=== PATIENT | female | born 1995 | race Caucasian/White ===

== ENCOUNTER 2018-01-03 11:01 | Emergency (ER) | payer MEDICAID ==
[~2018-01-03] VITALS: Ht 565.3 cm; Wt 56.0 kg
[~2018-01-03 11:01] MED LIST: CYCL-1 PO; GUAI1TBM19 PO; IBUP-812 PO; MECL-111 PO; ONDA4TAB6 PO; ONDA8TAB9 PO; PENI500T2 PO
[2018-01-03 11:05] VITALS: BP 106/72
[2018-01-03 12:01] LABS: BASOPHILS % (AUTO) 0.2 % (0-1); EOSINOPHILS % (AUTO) 0 % (0-6); HEMATOCRIT 39.8 % (35.0-45.0); HEMOGLOBIN 13.8 g/dl (12.0-16.0); LYMPHOCYTES # (AUTO) 1.3 X10'3 (1.1-4.8); LYMPHOCYTES % (AUTO) 19.8 % (21-51); MEAN CORPUSCULAR HEMOGLOBIN 32.6 PG (27.0-31.0); MEAN CORPUSCULAR HGB CONC 34.7 % (33.0-36.5); MEAN CORPUSCULAR VOLUME 93.7 FL (78-98); MEAN PLATELET VOLUME 7.1 FL (7.4-10.4); MONOCYTES # (AUTO) 0.4 X10'3 (0-0.9); MONOCYTES % (AUTO) 5.8 % (2-12); NEUTROPHILS % (AUTO) 74.2 % (42-75); PLATELET COUNT 267 X10'3 (140-440); RED BLOOD COUNT 4.24 X10'6 (4.20-5.60); RED CELL DISTRIBUTION WIDTH 12.2 % (11.5-14.5); WHITE BLOOD COUNT 6.8 X10'3 (4.5-11.0)
[2018-01-03 12:14] LABS: ALANINE AMINOTRANSFERASE 26 U/L (12-78); ALBUMIN 4.2 G/DL (3.4-5.0); ALBUMIN/GLOBULIN RATIO 1.2 (1.1-1.5); ALKALINE PHOSPHATASE 66 IU/L (46-116); ANION GAP 7 (8-16); BILIRUBIN,TOTAL 2.4 MG/DL (0.1-1.0); BLOOD UREA NITROGEN 13 MG/DL (7-18); BUN/CREATININE RATIO 15.9 (6.6-38.0); CALCIUM 9.2 MG/DL (8.5-10.1); CHLORIDE 103 MMOL/L (99-107); CREATININE 0.82 MG/DL (0.40-0.90); GLUCOSE 93 MG/DL (70-104); POTASSIUM 3.9 MMOL/L (3.5-5.1); SODIUM 139 MMOL/L (135-145); TOTAL CARBON DIOXIDE 29.2 MMOL/L (24-32); TOTAL PROTEIN 7.7 G/DL (6.4-8.2); eGFR 87 ML/MIN
[2018-01-03] MEDS ORDERED: TETanus/Pertussis (Acell)/Diphther VAC/PF (Tdap-Adult) 0.5ml syringe IM ONE (12:15)
[2018-01-03] MEDS ORDERED: LIDOcaine 1.5% w/epinephrine 1:200,000 5ml ampul IJ ONE (12:15)
[2018-01-03 12:32] LABS: ASPARTATE AMINO TRANSFERASE 15 U/L (10-37); ETHANOL < 0.010 GM/DL (0.0-0.010)
[2018-01-03 13:43] LABS: URINE HCG NEGATIVE (NEG)
[2018-01-03 13:44] LABS: CLARITY,URINE CLEAR (Clear); COLOR,URINE YELLOW (Yellow); GLUCOSE, URINE NEGATIVE (Neg); KETONES,URINE 40 mg/dl (Neg); LEUKOCYTE ESTERASE ,URINE TRACE (Neg); NITRITES, URINE NEGATIVE (Neg); OCCULT BLOOD,URINE MODERATE (Neg); PROTEIN,URINE NEGATIVE (Neg); UROBILINOGEN,URINE 0.2 E.U/dL (0.2-1.0)
[2018-01-03 13:54] LABS: URINE AMPHETAMINE SCREEN NEGATIVE (Neg); URINE BARBITUATE SCREEN NEGATIVE (Neg); URINE BENZODIAZEPINES SCREEN NEGATIVE (Neg); URINE CANNABINOID SCREEN POSITIVE (Neg); URINE COCAINE SCREEN NEGATIVE (Neg); URINE METHADONE SCREEN NEGATIVE (Neg); URINE OPIATE SCREEN NEGATIVE (Neg); URINE PHENCYCLIDINE SCREEN NEGATIVE (Neg)
[2018-01-03 14:03] LABS: UA COLLECTION TYPE CLN CATCH MIDSTREAM
[2018-01-03 14:04] LABS: BACTERIA,URINE FEW /HPF (Neg); MUCUS STRANDS FEW /LPF (Neg); RBC,URINE 0-2 /HPF (0-2); SQUAMOUS EPITHELIAL CELL,UR FEW /LPF (FEW); WBC,URINE 0-4 /HPF (0-4)
== END 2018-01-03 18:55 | disposition home or self-care (01) ==
LOC: ER 11:01
DX: S41.112A Laceration without foreign body of left upper arm, initial encounter (principal); T14.91XA Suicide attempt, initial encounter; F41.9 Anxiety disorder, unspecified; F32.9 Major depressive disorder, single episode, unspecified; F12.90 Cannabis use, unspecified, uncomplicated; G89.29 Other chronic pain; J45.909 Unspecified asthma, uncomplicated; Z88.8 Allergy status to other drugs, medicaments and biological substances; Z79.899 Other long term (current) drug therapy; X78.8XXA Intentional self-harm by other sharp object, initial encounter; Y93.89 Activity, other specified; Y92.89 Other specified places as the place of occurrence of the external cause; Y99.8 Other external cause status
CPT/HCPCS: 12002; 36415; 80053; 80305; 80320; 81001; 81025; 84443; 85025; 87088; 90471; 90715; 99285; A6449

== ENCOUNTER 2018-05-10 17:09 | Emergency (ER) | payer MEDICAID ==
[~2018-05-10] VITALS: Ht 154.9 cm; Wt 54.0 kg
[2018-05-10 17:41] LABS: URINE HCG NEGATIVE (NEG)
[2018-05-10 17:44] LABS: BASOPHILS % (AUTO) 0.2 % (0-1); EOSINOPHILS % (AUTO) 0.5 % (0-6); HEMATOCRIT 39.1 % (35.0-45.0); HEMOGLOBIN 13.1 g/dl (12.0-16.0); LYMPHOCYTES # (AUTO) 2.3 X10'3 (1.1-4.8); LYMPHOCYTES % (AUTO) 25.1 % (21-51); MEAN CORPUSCULAR HEMOGLOBIN 31.8 PG (27.0-31.0); MEAN CORPUSCULAR HGB CONC 33.6 % (33.0-36.5); MEAN CORPUSCULAR VOLUME 94.6 FL (78-98); MEAN PLATELET VOLUME 7.1 FL (7.4-10.4); MONOCYTES # (AUTO) 0.5 X10'3 (0-0.9); MONOCYTES % (AUTO) 5.8 % (2-12); NEUTROPHILS # (AUTO) 6.2 X10'3 (1.8-7.7); NEUTROPHILS % (AUTO) 68.4 % (42-75); PLATELET COUNT 325 X10'3 (140-440); RED BLOOD COUNT 4.14 X10'6 (4.20-5.60); RED CELL DISTRIBUTION WIDTH 12.3 % (11.5-14.5)
[2018-05-10 18:00] LABS: URINE AMPHETAMINE SCREEN NEGATIVE (Neg); URINE BARBITUATE SCREEN NEGATIVE (Neg); URINE BENZODIAZEPINES SCREEN NEGATIVE (Neg); URINE CANNABINOID SCREEN POSITIVE (Neg); URINE COCAINE SCREEN NEGATIVE (Neg); URINE METHADONE SCREEN NEGATIVE (Neg); URINE OPIATE SCREEN NEGATIVE (Neg); URINE PHENCYCLIDINE SCREEN NEGATIVE (Neg)
[2018-05-10 18:04] LABS: ALANINE AMINOTRANSFERASE 21 U/L (12-78); ALBUMIN 4.1 G/DL (3.4-5.0); ALBUMIN/GLOBULIN RATIO 1.2 (1.1-1.5); ALKALINE PHOSPHATASE 65 IU/L (46-116); ANION GAP 8 (8-16); ASPARTATE AMINO TRANSFERASE 19 U/L (10-37); BILIRUBIN,TOTAL 1.7 MG/DL (0.1-1.0); BLOOD UREA NITROGEN 10 MG/DL (7-18); CALCIUM 8.9 MG/DL (8.5-10.1); CHLORIDE 104 MMOL/L (99-107); CREATININE 0.77 MG/DL (0.40-0.90); GLUCOSE 88 MG/DL (70-104); SODIUM 143 MMOL/L (135-145); TOTAL CARBON DIOXIDE 30.6 MMOL/L (24-32); TOTAL PROTEIN 7.6 G/DL (6.4-8.2); eGFR > 90 ML/MIN
[2018-05-10 18:05] LABS: ETHANOL < 0.010 GM/DL (0.0-0.010)
[2018-05-10 18:07] LABS: POTASSIUM 2.8 MMOL/L (3.5-5.1)
[2018-05-10] MEDS ORDERED: potassium Cl 20 mEq SR tablet PO STA (18:15)
[2018-05-11 01:09] VITALS: BP 117/82
== END 2018-05-11 01:11 | disposition home or self-care (01) ==
LOC: ER 17:10
DX: R45.851 Suicidal ideations (principal); F32.9 Major depressive disorder, single episode, unspecified; F41.9 Anxiety disorder, unspecified; J45.909 Unspecified asthma, uncomplicated; G89.29 Other chronic pain; Z79.899 Other long term (current) drug therapy; Z98.890 Other specified postprocedural states; Z88.8 Allergy status to other drugs, medicaments and biological substances; Z59.0 Homelessness
CPT/HCPCS: 36415; 80053; 80305; 80320; 81025; 85025; 99284

== ENCOUNTER 2018-08-09 10:48 | Emergency (ER) | payer MEDICAID ==
[~2018-08-09] VITALS: Ht 154.9 cm; Wt 45.0 kg
[2018-08-09 12:38] LABS: BASOPHILS % (AUTO) 0.3 % (0-1); EOSINOPHILS # (AUTO) 0.1 X10'3 (0-0.9); EOSINOPHILS % (AUTO) 0.9 % (0-6); HEMATOCRIT 37.6 % (35.0-45.0); HEMOGLOBIN 12.9 g/dl (12.0-16.0); LYMPHOCYTES # (AUTO) 1.3 X10'3 (1.1-4.8); LYMPHOCYTES % (AUTO) 16.9 % (21-51); MEAN CORPUSCULAR HEMOGLOBIN 32.6 PG (27.0-31.0); MEAN CORPUSCULAR HGB CONC 34.2 g/dL (33.0-36.5); MEAN CORPUSCULAR VOLUME 95.2 FL (78-98); MEAN PLATELET VOLUME 6.8 FL (7.4-10.4); MONOCYTES # (AUTO) 0.2 X10'3 (0-0.9); MONOCYTES % (AUTO) 2.9 % (2-12); NEUTROPHILS # (AUTO) 5.9 X10'3 (1.8-7.7); PLATELET COUNT 288 X10'3 (140-440); RED BLOOD COUNT 3.95 X10'6 (4.20-5.60); RED CELL DISTRIBUTION WIDTH 12.6 % (11.5-14.5); WHITE BLOOD COUNT 7.5 X10'3 (4.5-11.0)
[2018-08-09 12:48] LABS: ALANINE AMINOTRANSFERASE 21 U/L (12-78); ALBUMIN 4.2 G/DL (3.4-5.0); ALBUMIN/GLOBULIN RATIO 1.2 (1.1-1.5); ALKALINE PHOSPHATASE 62 IU/L (46-116); ANION GAP 15 (8-16); ASPARTATE AMINO TRANSFERASE 18 U/L (10-37); BILIRUBIN,TOTAL 2.1 MG/DL (0.1-1.0); BLOOD UREA NITROGEN 16 MG/DL (7-18); BUN/CREATININE RATIO 26.2 (6.6-38.0); CALCIUM 8.8 MG/DL (8.5-10.1); CHLORIDE 102 MMOL/L (99-107); CREATININE 0.61 MG/DL (0.40-0.90); ETHANOL < 0.010 GM/DL (0.0-0.010); GLUCOSE 66 MG/DL (70-104); POTASSIUM 3.6 MMOL/L (3.5-5.1); SODIUM 142 MMOL/L (135-145); TOTAL CARBON DIOXIDE 25.2 MMOL/L (24-32); TOTAL PROTEIN 7.8 G/DL (6.4-8.2); eGFR > 90 ML/MIN
[2018-08-09 13:07] LABS: URINE HCG NEGATIVE (NEG)
[2018-08-09 13:11] LABS: CLARITY,URINE SLIGHTLY CLOUDY (Clear); COLOR,URINE YELLOW (Yellow); GLUCOSE, URINE NEGATIVE (Neg); KETONES,URINE >=80 mg/dl (Neg); LEUKOCYTE ESTERASE ,URINE NEGATIVE (Neg); NITRITES, URINE NEGATIVE (Neg); OCCULT BLOOD,URINE LARGE (Neg); PROTEIN,URINE NEGATIVE (Neg); UA COLLECTION TYPE NON-SPECIFIED; UROBILINOGEN,URINE 0.2 E.U/dL (0.2-1.0)
[2018-08-09 13:22] LABS: URINE AMPHETAMINE SCREEN NEGATIVE (Neg); URINE BARBITUATE SCREEN NEGATIVE (Neg); URINE BENZODIAZEPINES SCREEN NEGATIVE (Neg); URINE CANNABINOID SCREEN POSITIVE (Neg); URINE COCAINE SCREEN NEGATIVE (Neg); URINE METHADONE SCREEN NEGATIVE (Neg); URINE OPIATE SCREEN NEGATIVE (Neg); URINE PHENCYCLIDINE SCREEN NEGATIVE (Neg)
[2018-08-09 13:30] LABS: MUCUS STRANDS MANY /LPF (Neg); SQUAMOUS EPITHELIAL CELL,UR MODERATE /LPF (FEW)
[2018-08-09 13:32] LABS: RBC,URINE TNTC /HPF (0-2)
[2018-08-09 13:34] LABS: BACTERIA,URINE NONE SEEN /HPF (Neg); WBC,URINE 0-4 /HPF (0-4)
--- NOTE | 2018-08-09 15:09 | NUR ---
1454: TELE-PSYCH INITIATED
--- NOTE | 2018-08-09 15:20 | NUR ---
REPORTED GIVEN TO ED SOC .
[2018-08-09] MEDS ORDERED: QUET25TA PO (16:20)
[2018-08-09 16:40] VITALS: BP 110/64
== END 2018-08-09 16:51 | disposition home or self-care (01) ==
LOC: ER 10:48 → EEVIPCON 10:48 → ER 16:51
DX: F32.9 Major depressive disorder, single episode, unspecified (principal); J45.909 Unspecified asthma, uncomplicated; G89.29 Other chronic pain; F41.9 Anxiety disorder, unspecified; Z88.8 Allergy status to other drugs, medicaments and biological substances; Z79.899 Other long term (current) drug therapy
CPT/HCPCS: 36415; 80053; 80305; 80320; 81001; 81025; 85025; 99283; 99284

== ENCOUNTER 2018-08-21 10:10 | Emergency (ER) | payer MEDICAID ==
[~2018-08-21] VITALS: Ht 154.9 cm; Wt 48.5 kg
[~2018-08-21 10:10] MED LIST changes: +QUET25TA PO
[2018-08-21] MEDS ORDERED: normal saline 1000ml 1,000 ML IV ONE (11:25)
[2018-08-21 11:43] LABS: CLARITY,URINE CLOUDY (Clear); COLOR,URINE YELLOW (Yellow); GLUCOSE, URINE NEGATIVE (Neg); KETONES,URINE NEGATIVE (Neg); LEUKOCYTE ESTERASE ,URINE NEGATIVE (Neg); NITRITES, URINE NEGATIVE (Neg); OCCULT BLOOD,URINE MODERATE (Neg); PH,URINE 5.5 (4.8-8.0); PROTEIN,URINE NEGATIVE (Neg); UROBILINOGEN,URINE 0.2 E.U/dL (0.2-1.0)
[2018-08-21 11:45] LABS: UA COLLECTION TYPE CLN CATCH MIDSTREAM
[2018-08-21 11:49] LABS: MUCUS STRANDS MANY /LPF (Neg); SQUAMOUS EPITHELIAL CELL,UR MANY /LPF (FEW)
[2018-08-21 11:50] LABS: BACTERIA,URINE 2+ /HPF (Neg); RBC,URINE 0-2 /HPF (0-2); WBC,URINE 0-4 /HPF (0-4)
[2018-08-21 12:02] LABS: BASOPHILS % (AUTO) 0.1 % (0-1); EOSINOPHILS % (AUTO) 0.1 % (0-6); HEMATOCRIT 38.6 % (35.0-45.0); HEMOGLOBIN 13.1 g/dl (12.0-16.0); LYMPHOCYTES # (AUTO) 1.3 X10'3 (1.1-4.8); LYMPHOCYTES % (AUTO) 16.5 % (21-51); MEAN CORPUSCULAR HEMOGLOBIN 31.9 PG (27.0-31.0); MEAN CORPUSCULAR HGB CONC 34.1 g/dL (33.0-36.5); MEAN CORPUSCULAR VOLUME 93.7 FL (78-98); MEAN PLATELET VOLUME 7.4 FL (7.4-10.4); MONOCYTES # (AUTO) 0.4 X10'3 (0-0.9); MONOCYTES % (AUTO) 5.4 % (2-12); NEUTROPHILS # (AUTO) 5.9 X10'3 (1.8-7.7); NEUTROPHILS % (AUTO) 77.9 % (42-75); PLATELET COUNT 205 X10'3 (140-440); RED BLOOD COUNT 4.11 X10'6 (4.20-5.60); RED CELL DISTRIBUTION WIDTH 12.2 % (11.5-14.5); WHITE BLOOD COUNT 7.6 X10'3 (4.5-11.0)
[2018-08-21 12:20] LABS: ALANINE AMINOTRANSFERASE 19 U/L (12-78); ALBUMIN 4.3 G/DL (3.4-5.0); ALBUMIN/GLOBULIN RATIO 1.2 (1.1-1.5); ALKALINE PHOSPHATASE 64 IU/L (46-116); ANION GAP 11 (8-16); ASPARTATE AMINO TRANSFERASE 15 U/L (10-37); BILIRUBIN,TOTAL 1.2 MG/DL (0.1-1.0); BLOOD UREA NITROGEN 11 MG/DL (7-18); BUN/CREATININE RATIO 16.4 (6.6-38.0); CALCIUM 8.8 MG/DL (8.5-10.1); CHLORIDE 104 MMOL/L (99-107); CREATININE 0.67 MG/DL (0.40-0.90); GLUCOSE 116 MG/DL (70-104); SODIUM 141 MMOL/L (135-145); TOTAL CARBON DIOXIDE 26.1 MMOL/L (24-32); TOTAL PROTEIN 7.8 G/DL (6.4-8.2); eGFR > 90 ML/MIN
[2018-08-21 12:22] LABS: POTASSIUM 2.8 MMOL/L (3.5-5.1)
[2018-08-21] MEDS ORDERED: potassium Cl 20 mEq SR tablet PO STA (12:31)
[2018-08-21 12:35] LABS: URINE HCG NEGATIVE (NEG)
[2018-08-21] MEDS ORDERED: ondansetron 4mg rapidly disintigrating tab PO ONE (12:35)
--- NOTE | 2018-08-21 13:00 | NUR ---
PATIENT UP TO BATHROOM, AMBULATED WNL. PATIENT PROVIDED BAGGED LUNCH AND ORANGE JUICE. PATIENT AND HER BOYFRIEND LIVE IN THEIR CAR
[2018-08-21] MEDS ORDERED: POTA10CA44 PO (13:30)
[2018-08-21] MEDS ORDERED: ONDA4TAB6 PO (13:35)
[2018-08-21] MEDS ORDERED: FAMO-128 PO (13:35)
[2018-08-21 13:50] VITALS: BP 106/65
== END 2018-08-21 13:52 | disposition home or self-care (01) ==
LOC: ER 10:10
DX: R63.0 Anorexia (principal); R42 Dizziness and giddiness; J45.909 Unspecified asthma, uncomplicated; G89.29 Other chronic pain; Z88.8 Allergy status to other drugs, medicaments and biological substances; Z79.899 Other long term (current) drug therapy
CPT/HCPCS: 36415; 80053; 81001; 81025; 85025; 96360; 99283; J7030

== ENCOUNTER 2019-01-15 12:17 | Emergency (ER) | payer MEDICAID ==
[~2019-01-15] VITALS: Ht 154.9 cm; Wt 45.5 kg
[~2019-01-15 12:17] MED LIST changes: +FAMO-128 PO; +IBUP-1985 PO; -QUET25TA PO
[2019-01-15 12:27] VITALS: BP 103/70
[2019-01-15] MEDS ORDERED: HYDROcodone/acetaminophen 5mg/325mg tablet PO STA (12:34)
== END 2019-01-15 13:55 | disposition home or self-care (01) ==
LOC: ER 12:17
DX: S40.021A Contusion of right upper arm, initial encounter (principal); M79.631 Pain in right forearm; J45.909 Unspecified asthma, uncomplicated; G89.29 Other chronic pain; F41.9 Anxiety disorder, unspecified; F32.9 Major depressive disorder, single episode, unspecified; Z98.890 Other specified postprocedural states; Z79.899 Other long term (current) drug therapy; W18.39XA Other fall on same level, initial encounter; Y93.89 Activity, other specified; Y92.89 Other specified places as the place of occurrence of the external cause; Y99.8 Other external cause status
CPT/HCPCS: 29125; 73080; 73090; 99284

== ENCOUNTER 2019-04-13 08:48 | Emergency (ER) | payer MEDICAID ==
[~2019-04-13] VITALS: Ht 154.9 cm; Wt 55.0 kg
[2019-04-13 08:59] VITALS: BP 95/73
[2019-04-13] MEDS ORDERED: ipratropium/albuterol 3ml nebule NEB ONE (09:30)
[2019-04-13] MEDS ORDERED: METH4TAB81 PO (09:32)
[2019-04-13] MEDS ORDERED: AZIT250T83 PO (09:32)
[2019-04-13] MEDS ORDERED: ALBU8.5H8 IH (09:32)
--- NOTE | 2019-04-13 09:44 | NUR ---
RT AT BEDSIDE
== END 2019-04-13 09:58 | disposition home or self-care (01) ==
LOC: ER 08:49
DX: J20.9 Acute bronchitis, unspecified (principal); J45.909 Unspecified asthma, uncomplicated; G89.29 Other chronic pain; F41.9 Anxiety disorder, unspecified; F32.9 Major depressive disorder, single episode, unspecified; F12.90 Cannabis use, unspecified, uncomplicated; F17.200 Nicotine dependence, unspecified, uncomplicated; Z98.890 Other specified postprocedural states; Z88.8 Allergy status to other drugs, medicaments and biological substances; Z79.2 Long term (current) use of antibiotics; Z79.899 Other long term (current) drug therapy
CPT/HCPCS: 94640; 94760; 99283

== ENCOUNTER 2019-06-30 15:27 | Emergency (ER) | payer MEDICAID ==
[~2019-06-30] VITALS: Ht 154.9 cm; Wt 45.0 kg
[~2019-06-30 15:27] MED LIST changes: +ALBU8.5H8 IH; +METH4TAB81 PO
[2019-06-30] MEDS ORDERED: metoclopramide 5 mg/ml inj IV ONE (16:20)
[2019-06-30] MEDS ORDERED: normal saline 1000ML IV soln IVB ONE ×2 (16:20)
[2019-06-30] MEDS ORDERED: diphenhydrAMINE 50 mg/ml inj IV ONE (16:20)
[2019-06-30] MEDS ORDERED: glycopyrrolate 0.2mg/ml inj IV ONE (16:20)
[2019-06-30 17:06] LABS: HEMATOCRIT 36.9 % (35.0-45.0); MEAN PLATELET VOLUME 7.8 FL (7.4-10.4)
[2019-06-30 17:08] LABS: BASOPHILS % (AUTO) 0.2 % (0-1); EOSINOPHILS % (AUTO) 0.2 % (0-6); HEMOGLOBIN 12.6 g/dl (12.0-16.0); LYMPHOCYTES # (AUTO) 1.7 X10'3 (1.1-4.8); LYMPHOCYTES % (AUTO) 25.4 % (21-51); MEAN CORPUSCULAR HEMOGLOBIN 33.2 PG (27.0-31.0); MEAN CORPUSCULAR HGB CONC 34.2 g/dL (33.0-36.5); MEAN CORPUSCULAR VOLUME 97.1 FL (78-98); MONOCYTES # (AUTO) 0.5 X10'3 (0-0.9); MONOCYTES % (AUTO) 7.3 % (2-12); NEUTROPHILS # (AUTO) 4.5 X10'3 (1.8-7.7); NEUTROPHILS % (AUTO) 66.9 % (42-75); PLATELET COUNT 233 X10'3 (140-440); WHITE BLOOD COUNT 6.7 X10'3 (4.5-11.0)
[2019-06-30 17:21] LABS: ALANINE AMINOTRANSFERASE 19 U/L (12-78); ALBUMIN 4.1 G/DL (3.4-5.0); ALBUMIN/GLOBULIN RATIO 1.2 (1.1-1.5); ALKALINE PHOSPHATASE 47 IU/L (46-116); ANION GAP 8 (8-16); ASPARTATE AMINO TRANSFERASE 15 U/L (10-37); BILIRUBIN,TOTAL 0.8 MG/DL (0.1-1.0); BLOOD UREA NITROGEN 13 MG/DL (7-18); BUN/CREATININE RATIO 21.7 (6.6-38.0); CALCIUM 8.6 MG/DL (8.5-10.1); CHLORIDE 107 MMOL/L (99-107); GLUCOSE 95 MG/DL (70-104); LIPASE 72 U/L (73-393); POTASSIUM 3.8 MMOL/L (3.5-5.1); SODIUM 144 MMOL/L (135-145); TOTAL CARBON DIOXIDE 29.5 MMOL/L (24-32); TOTAL PROTEIN 7.4 G/DL (6.4-8.2); eGFR > 90 ML/MIN
[2019-06-30 17:55] VITALS: BP 99/69
[2019-06-30] MEDS ORDERED: ketorolac trometh. 30mg/ml inj. IV ONE (18:15)
[2019-06-30 18:33] LABS: CLARITY,URINE CLOUDY (Clear); COLOR,URINE YELLOW (Yellow); GLUCOSE, URINE NEGATIVE (Neg); KETONES,URINE NEGATIVE (Neg); LEUKOCYTE ESTERASE ,URINE NEGATIVE (Neg); NITRITES, URINE NEGATIVE (Neg); OCCULT BLOOD,URINE TRACE-INTACT (Neg); PROTEIN,URINE NEGATIVE (Neg); UROBILINOGEN,URINE 0.2 E.U/dL (0.2-1.0)
[2019-06-30 18:34] LABS: URINE HCG NEGATIVE (NEG)
[2019-06-30 18:36] LABS: UA COLLECTION TYPE CLN CATCH MIDSTREAM
[2019-06-30] MEDS ORDERED: ONDA4TAB12 PO (18:38)
[2019-06-30 18:57] LABS: AMORPHOUS PHOSPHATES 3+; MUCUS STRANDS FEW /LPF (Neg); SQUAMOUS EPITHELIAL CELL,UR MANY /LPF (FEW)
[2019-06-30 18:58] LABS: BACTERIA,URINE 2+ /HPF (Neg); RBC,URINE 0-2 /HPF (0-2); WBC,URINE 0-4 /HPF (0-4)
== END 2019-06-30 19:02 | disposition home or self-care (01) ==
LOC: ER 15:28
DX: R10.13 Epigastric pain (principal); R11.2 Nausea with vomiting, unspecified; J45.909 Unspecified asthma, uncomplicated; G89.29 Other chronic pain; F12.90 Cannabis use, unspecified, uncomplicated; F17.200 Nicotine dependence, unspecified, uncomplicated; Z98.890 Other specified postprocedural states; Z88.8 Allergy status to other drugs, medicaments and biological substances; Z79.899 Other long term (current) drug therapy
CPT/HCPCS: 36415; 80053; 81001; 81025; 83690; 85025; 96361; 96374; 96375; 99283; J1200; J1885; J2765; J7030; J3490

== ENCOUNTER 2019-12-20 19:53 | Emergency (ER) | payer MEDICAID ==
[~2019-12-20] VITALS: Ht 154.9 cm; Wt 50.0 kg
[~2019-12-20 19:53] MED LIST changes: -MECL-111 PO; +MECL-159 PO; +ONDA4TAB12 PO
[2019-12-20 19:55] VITALS: BP 108/82
--- NOTE | 2019-12-20 20:10 | NUR ---
Pt states she recently quit drinking energy drinks. Previously she states she drank 3 or 4 energy drinks a day.
[2019-12-20] MEDS ORDERED: famotidine 20mg tablet PO ONE (20:15)
[2019-12-20] MEDS ORDERED: ondansetron 4mg rapidly disintigrating tab PO ONE (20:15)
[2019-12-20 20:39] LABS: URINE HCG NEGATIVE (NEG)
[2019-12-20 20:40] LABS: CLARITY,URINE CLOUDY (Clear); COLOR,URINE YELLOW (Yellow); GLUCOSE, URINE NEGATIVE (Neg); KETONES,URINE NEGATIVE (Neg); LEUKOCYTE ESTERASE ,URINE NEGATIVE (Neg); NITRITES, URINE NEGATIVE (Neg); OCCULT BLOOD,URINE SMALL (Neg); PH,URINE 7.5 (4.8-8.0); PROTEIN,URINE NEGATIVE (Neg); UROBILINOGEN,URINE 0.2 E.U/dL (0.2-1.0)
[2019-12-20 20:40] LABS: BASOPHILS % (AUTO) 0.3 % (0-1); EOSINOPHILS % (AUTO) 0.4 % (0-6); HEMATOCRIT 35.2 % (35.0-45.0); LYMPHOCYTES # (AUTO) 3.1 X10'3 (1.1-4.8); LYMPHOCYTES % (AUTO) 41.2 % (21-51); MEAN CORPUSCULAR HEMOGLOBIN 31.5 PG (27.0-31.0); MEAN CORPUSCULAR HGB CONC 34.1 g/dL (33.0-36.5); MEAN CORPUSCULAR VOLUME 92.4 FL (78-98); MEAN PLATELET VOLUME 6.8 FL (7.4-10.4); MONOCYTES # (AUTO) 0.7 X10'3 (0-0.9); MONOCYTES % (AUTO) 9.8 % (2-12); NEUTROPHILS # (AUTO) 3.6 X10'3 (1.8-7.7); NEUTROPHILS % (AUTO) 48.3 % (42-75); PLATELET COUNT 251 X10'3 (140-440); RED BLOOD COUNT 3.82 X10'6 (4.20-5.60); RED CELL DISTRIBUTION WIDTH 12.1 % (11.5-14.5); WHITE BLOOD COUNT 7.4 X10'3 (4.5-11.0)
[2019-12-20 20:52] LABS: ALANINE AMINOTRANSFERASE 19 U/L (12-78); ALBUMIN 4.1 G/DL (3.4-5.0); ALBUMIN/GLOBULIN RATIO 1.2 (1.1-1.5); ALKALINE PHOSPHATASE 50 IU/L (46-116); ANION GAP 10 (8-16); ASPARTATE AMINO TRANSFERASE 15 U/L (10-37); BILIRUBIN,TOTAL 1.1 MG/DL (0.1-1.0); BLOOD UREA NITROGEN 10 MG/DL (7-18); BUN/CREATININE RATIO 11.2 (6.6-38.0); CALCIUM 9.4 MG/DL (8.5-10.1); CHLORIDE 107 MMOL/L (99-107); CREATININE 0.89 MG/DL (0.40-0.90); GLUCOSE 87 MG/DL (70-104); LIPASE 83 U/L (73-393); POTASSIUM 3.8 MMOL/L (3.5-5.1); SODIUM 145 MMOL/L (135-145); TOTAL CARBON DIOXIDE 28.1 MMOL/L (24-32); TOTAL PROTEIN 7.6 G/DL (6.4-8.2); eGFR 78 ML/MIN
[2019-12-20 20:54] LABS: UA COLLECTION TYPE CLN CATCH MIDSTREAM
[2019-12-20 20:55] LABS: BACTERIA,URINE NONE SEEN /HPF (Neg); SQUAMOUS EPITHELIAL CELL,UR MANY /LPF (FEW); WBC,URINE NONE SEEN /HPF (0-4)
[2019-12-20 20:56] LABS: AMORPHOUS PHOSPHATES 3+; MUCUS STRANDS FEW /LPF (Neg)
[2019-12-20] MEDS ORDERED: ONDA4TAB6 PO (20:57)
== END 2019-12-20 21:13 | disposition home or self-care (01) ==
LOC: ER 19:54
DX: R11.2 Nausea with vomiting, unspecified (principal); R53.1 Weakness; J45.909 Unspecified asthma, uncomplicated; G89.29 Other chronic pain; F41.9 Anxiety disorder, unspecified; F32.9 Major depressive disorder, single episode, unspecified; F12.90 Cannabis use, unspecified, uncomplicated; Z98.890 Other specified postprocedural states; Z88.8 Allergy status to other drugs, medicaments and biological substances; Z79.899 Other long term (current) drug therapy
CPT/HCPCS: 36415; 80053; 81001; 81025; 83690; 85025; 99283

== ENCOUNTER 2020-03-23 22:54 | Emergency (ER) | payer MEDICAID ==
[~2020-03-23] VITALS: Ht 154.9 cm; Wt 50.0 kg
[2020-03-23 23:00] VITALS: BP 116/82
[2020-03-24] MEDS ORDERED: HYDR-3686 PO (00:39)
[2020-03-24] MEDS ORDERED: LURA40TA3 PO (00:39)
[2020-03-24] MEDS ORDERED: lurasidone 60mg tablet PO ONE (00:45)
[2020-03-24] MEDS ORDERED: lurasidone 60mg tablet PO SCH (00:45)
[2020-03-24] MEDS ORDERED: hydrOXYzine 25 MG tablet PO ONE (00:45)
== END 2020-03-24 05:51 | disposition home or self-care (01) ==
LOC: ER 22:54
DX: R45.851 Suicidal ideations (principal); J45.909 Unspecified asthma, uncomplicated; G89.29 Other chronic pain; F41.9 Anxiety disorder, unspecified; F32.9 Major depressive disorder, single episode, unspecified; F12.90 Cannabis use, unspecified, uncomplicated; Z91.19 Patient's noncompliance with other medical treatment and regimen; Z98.890 Other specified postprocedural states; Z86.2 Personal history of diseases of the blood and blood-forming organs and certain disorders involving the immune mechanism; Z72.89 Other problems related to lifestyle; Z88.8 Allergy status to other drugs, medicaments and biological substances; Z79.2 Long term (current) use of antibiotics; Z79.899 Other long term (current) drug therapy
CPT/HCPCS: 99283; Q0177

== ENCOUNTER 2020-07-28 00:18 | Emergency (ER) | payer MEDICAID ==
[~2020-07-28] VITALS: Ht 154.9 cm; Wt 55.0 kg
[~2020-07-28 00:18] MED LIST changes: +LURA40TA3 PO
[2020-07-28 00:29] VITALS: BP 109/80
== END 2020-07-28 01:03 | disposition home or self-care (01) ==
LOC: ER 00:19
DX: S63.501A Unspecified sprain of right wrist, initial encounter (principal); J45.909 Unspecified asthma, uncomplicated; G89.29 Other chronic pain; F41.9 Anxiety disorder, unspecified; F32.9 Major depressive disorder, single episode, unspecified; F12.90 Cannabis use, unspecified, uncomplicated; Z86.2 Personal history of diseases of the blood and blood-forming organs and certain disorders involving the immune mechanism; Z98.890 Other specified postprocedural states; Z72.89 Other problems related to lifestyle; Z88.8 Allergy status to other drugs, medicaments and biological substances; Z79.2 Long term (current) use of antibiotics; Z79.899 Other long term (current) drug therapy; X58.XXXA Exposure to other specified factors, initial encounter; Y93.89 Activity, other specified; Y92.89 Other specified places as the place of occurrence of the external cause; Y99.8 Other external cause status
CPT/HCPCS: 29125; 73110; 99283

== ENCOUNTER 2020-08-15 21:38 | Emergency (ER) | payer MEDICAID ==
[~2020-08-15] VITALS: Ht 154.9 cm; Wt 55.0 kg
[2020-08-15] MEDS ORDERED: IBUP-1984 PO (22:41)
[2020-08-15] MEDS ORDERED: ibuprofen tablet 400 MG TABLET PO ONE (22:45)
[2020-08-15 22:51] VITALS: BP 110/81
== END 2020-08-15 22:52 | disposition home or self-care (01) ==
LOC: ER 21:38
DX: R07.89 Other chest pain (principal); J45.909 Unspecified asthma, uncomplicated; G89.29 Other chronic pain; F41.9 Anxiety disorder, unspecified; F32.9 Major depressive disorder, single episode, unspecified; F17.200 Nicotine dependence, unspecified, uncomplicated; F12.90 Cannabis use, unspecified, uncomplicated; Z86.2 Personal history of diseases of the blood and blood-forming organs and certain disorders involving the immune mechanism; Z98.890 Other specified postprocedural states; Z72.89 Other problems related to lifestyle; Z88.8 Allergy status to other drugs, medicaments and biological substances; Z79.2 Long term (current) use of antibiotics; Z79.899 Other long term (current) drug therapy
CPT/HCPCS: 71045; 93005; 99283

== ENCOUNTER 2020-12-24 19:49 | Emergency (ER) | payer MEDICAID ==
[~2020-12-24] VITALS: Ht 154.9 cm; Wt 54.1 kg
[2020-12-24 20:45] VITALS: BP 111/72
--- NOTE | 2020-12-24 21:51 | NUR ---
pt is resting quietly on gurney, waiting to be evaluated by provider, friend at bedside
[2020-12-24] MEDS ORDERED: ketorolac trometh. 30mg/ml inj. IM ONE (22:05)
== END 2020-12-24 22:54 | disposition home or self-care (01) ==
LOC: ER 19:50
DX: M79.641 Pain in right hand (principal); J45.909 Unspecified asthma, uncomplicated; G89.29 Other chronic pain; F41.9 Anxiety disorder, unspecified; F32.9 Major depressive disorder, single episode, unspecified; F12.90 Cannabis use, unspecified, uncomplicated; Z86.2 Personal history of diseases of the blood and blood-forming organs and certain disorders involving the immune mechanism; Z98.890 Other specified postprocedural states; Z85.9 Personal history of malignant neoplasm, unspecified; Z72.89 Other problems related to lifestyle; Z88.8 Allergy status to other drugs, medicaments and biological substances; Z79.2 Long term (current) use of antibiotics; Z79.899 Other long term (current) drug therapy
CPT/HCPCS: 73130; 99283

== ENCOUNTER 2021-01-29 09:38 | Emergency (ER) | payer MEDICAID ==
[~2021-01-29] VITALS: Ht 154.9 cm; Wt 55.5 kg
[~2021-01-29 09:38] MED LIST changes: +ALBU8.5H17 IH; -ALBU8.5H8 IH
[2021-01-29 10:14] VITALS: BP 93/58
== END 2021-01-29 13:46 | disposition left against medical advice (07) ==
LOC: ER 09:39
DX: M79.605 Pain in left leg (principal); Z53.21 Procedure and treatment not carried out due to patient leaving prior to being seen by health care provider

== ENCOUNTER 2021-03-26 02:45 | Emergency (ER) | payer MEDICAID ==
[~2021-03-26] VITALS: Ht 154.9 cm; Wt 54.5 kg
[2021-03-26 05:01] LABS: URINE HCG NEGATIVE (NEG)
[2021-03-26 05:20] LABS: ALANINE AMINOTRANSFERASE 19 U/L (12-78); ALBUMIN 3.6 G/DL (3.4-5.0); ALBUMIN/GLOBULIN RATIO 1.1 (1.1-1.5); ALKALINE PHOSPHATASE 71 IU/L (46-116); ANION GAP 13 (8-16); ASPARTATE AMINO TRANSFERASE 14 U/L (10-37); BILIRUBIN,TOTAL 0.8 MG/DL (0.1-1.0); BLOOD UREA NITROGEN 12 MG/DL (7-18); BUN/CREATININE RATIO 19.7 (6.6-38.0); CALCIUM 8.5 MG/DL (8.5-10.1); CHLORIDE 107 MMOL/L (99-107); CREATININE 0.61 MG/DL (0.40-0.90); GLUCOSE 99 MG/DL (70-104); LIPASE 61 U/L (73-393); POTASSIUM 3.6 MMOL/L (3.5-5.1); SODIUM 144 MMOL/L (135-145); TOTAL CARBON DIOXIDE 24.4 MMOL/L (24-32); TOTAL PROTEIN 6.9 G/DL (6.4-8.2); eGFR > 90 ML/MIN
[2021-03-26 05:30] LABS: BASOPHILS % (AUTO) 0.2 % (0-1); EOSINOPHILS % (AUTO) 0.3 % (0-6); HEMATOCRIT 34.3 % (35.0-45.0); HEMOGLOBIN 11.7 g/dl (12.0-16.0); LYMPHOCYTES # (AUTO) 2.2 X10'3 (1.1-4.8); LYMPHOCYTES % (AUTO) 25.2 % (21-51); MEAN CORPUSCULAR HEMOGLOBIN 32.8 PG (27.0-31.0); MEAN CORPUSCULAR HGB CONC 34.1 g/dL (33.0-36.5); MEAN CORPUSCULAR VOLUME 96.2 FL (78-98); MEAN PLATELET VOLUME 7.4 FL (7.4-10.4); MONOCYTES # (AUTO) 0.7 X10'3 (0-0.9); MONOCYTES % (AUTO) 8.3 % (2-12); NEUTROPHILS # (AUTO) 5.7 X10'3 (1.8-7.7); PLATELET COUNT 330 X10'3 (140-440); RED BLOOD COUNT 3.56 X10'6 (4.20-5.60); RED CELL DISTRIBUTION WIDTH 12.7 % (11.5-14.5); WHITE BLOOD COUNT 8.7 X10'3 (4.5-11.0)
[2021-03-26 05:46] LABS: CLARITY,URINE CLOUDY (Clear); COLOR,URINE PINK (Yellow); GLUCOSE, URINE NEGATIVE (Neg); KETONES,URINE NEGATIVE (Neg); PH,URINE 7.5 (4.8-8.0); PROTEIN,URINE TRACE mg/dl (Neg); UA COLLECTION TYPE CLN CATCH MIDSTREAM
[2021-03-26 05:47] LABS: LEUKOCYTE ESTERASE ,URINE TRACE (Neg); NITRITES, URINE NEGATIVE (Neg); OCCULT BLOOD,URINE LARGE (Neg); UROBILINOGEN,URINE 0.2 E.U/dL (0.2-1.0)
--- NOTE | 2021-03-26 05:48 | NUR ---
Pt IS A&O X 4, GAIT IS STEADY. NO BLEEDING OR CRAMPING AT THIS TIME. PT IS SITTING IN BED TALKING ON PHONE WITH NO PAIN NOTED OR PAIN MEDICATION REQUESTED.
[2021-03-26 05:50] LABS: BACTERIA,URINE FEW /HPF (Neg); RBC,URINE 20-50 /HPF (0-2); SQUAMOUS EPITHELIAL CELL,UR FEW /LPF (FEW); WBC,URINE 0-4 /HPF (0-4)
[2021-03-26 05:51] LABS: AMORPHOUS PHOSPHATES 3+; MUCUS STRANDS MODERATE /LPF (Neg)
[2021-03-26 05:53] LABS: MAGNESIUM 2.1 MG/DL (1.5-2.4)
[2021-03-26 06:27] VITALS: BP 91/53
== END 2021-03-26 06:29 | disposition home or self-care (01) ==
LOC: ER 02:46
DX: R10.32 Left lower quadrant pain (principal); R10.31 Right lower quadrant pain; J45.909 Unspecified asthma, uncomplicated; G89.29 Other chronic pain; F12.90 Cannabis use, unspecified, uncomplicated; Z72.89 Other problems related to lifestyle; Z85.9 Personal history of malignant neoplasm, unspecified; Z86.2 Personal history of diseases of the blood and blood-forming organs and certain disorders involving the immune mechanism; Z88.8 Allergy status to other drugs, medicaments and biological substances; Z79.899 Other long term (current) drug therapy
CPT/HCPCS: 36415; 80053; 81001; 81025; 83690; 83735; 85025; 87088; 99283

== ENCOUNTER 2021-06-19 11:03 | Emergency (ER) | payer MEDICAID ==
[~2021-06-19] VITALS: Ht 154.9 cm; Wt 54.5 kg
[2021-06-19 11:14] VITALS: BP 104/71
[2021-06-19 11:28] LABS: BASOPHILS % (AUTO) 0.1 % (0-1); EOSINOPHILS % (AUTO) 0.3 % (0-6); HEMATOCRIT 37.4 % (35.0-45.0); HEMOGLOBIN 12.8 g/dl (12.0-16.0); LYMPHOCYTES # (AUTO) 1.7 X10'3 (1.1-4.8); LYMPHOCYTES % (AUTO) 33.4 % (21-51); MEAN CORPUSCULAR HEMOGLOBIN 32.2 PG (27.0-31.0); MEAN CORPUSCULAR HGB CONC 34.2 g/dL (33.0-36.5); MEAN CORPUSCULAR VOLUME 94.4 FL (78-98); MEAN PLATELET VOLUME 6.9 FL (7.4-10.4); MONOCYTES # (AUTO) 0.3 X10'3 (0-0.9); MONOCYTES % (AUTO) 6.1 % (2-12); NEUTROPHILS # (AUTO) 3.1 X10'3 (1.8-7.7); NEUTROPHILS % (AUTO) 60.1 % (42-75); PLATELET COUNT 283 X10'3 (140-440); RED BLOOD COUNT 3.96 X10'6 (4.20-5.60); RED CELL DISTRIBUTION WIDTH 12.3 % (11.5-14.5); WHITE BLOOD COUNT 5.2 X10'3 (4.5-11.0)
[2021-06-19 11:41] LABS: PARTIAL THROMBOPLASTIN TIME 26 SECONDS (22-32)
[2021-06-19 11:42] LABS: ALANINE AMINOTRANSFERASE 25 U/L (12-78); ALBUMIN 3.8 G/DL (3.4-5.0); ALKALINE PHOSPHATASE 68 IU/L (46-116); ANION GAP 9 (8-16); ASPARTATE AMINO TRANSFERASE 19 U/L (10-37); BILIRUBIN,TOTAL 0.8 MG/DL (0.1-1.0); BLOOD UREA NITROGEN 11 MG/DL (7-18); BUN/CREATININE RATIO 15.5 (6.6-38.0); CALCIUM 8.7 MG/DL (8.5-10.1); CHLORIDE 108 MMOL/L (99-107); CREATININE 0.71 MG/DL (0.40-0.90); GLUCOSE 104 MG/DL (70-104); POTASSIUM 3.9 MMOL/L (3.5-5.1); SODIUM 144 MMOL/L (135-145); TOTAL CARBON DIOXIDE 27.1 MMOL/L (24-32); TOTAL PROTEIN 7.5 G/DL (6.4-8.2); eGFR > 90 ML/MIN
== END 2021-06-19 13:04 | disposition home or self-care (01) ==
LOC: ER 11:04
DX: R06.02 Shortness of breath (principal); R55 Syncope and collapse; R53.83 Other fatigue; J45.909 Unspecified asthma, uncomplicated; G89.29 Other chronic pain; Z86.2 Personal history of diseases of the blood and blood-forming organs and certain disorders involving the immune mechanism; F12.90 Cannabis use, unspecified, uncomplicated; Z72.89 Other problems related to lifestyle; Z98.891 History of uterine scar from previous surgery; Z85.9 Personal history of malignant neoplasm, unspecified; Z88.8 Allergy status to other drugs, medicaments and biological substances; Z79.2 Long term (current) use of antibiotics; Z79.899 Other long term (current) drug therapy
CPT/HCPCS: 36415; 71045; 80053; 83880; 85025; 85610; 85730; 93005; 99285

== ENCOUNTER 2021-09-16 23:06 | Emergency (ER) | payer MEDICAID ==
[~2021-09-16] VITALS: Ht 154.9 cm; Wt 56.8 kg
[~2021-09-16 23:06] MED LIST changes: +LURA40TA2 PO; -LURA40TA3 PO
[2021-09-16] MEDS ORDERED: TETanus/Pertussis (Acell)/Diphther VAC/PF (Tdap-Adult) 0.5ml syringe IMVAC ONE (23:20)
[2021-09-16] MEDS ORDERED: LIDOcaine 1% W/epiNEPHrine 1:200,000 10ml vial IJ ONE (23:20)
[2021-09-16] MEDS ORDERED: LIDOCAINE 2% w/EPI 1:200,000 multi-dose 20ml VIAL SQ ONE (23:25)
[2021-09-16] MEDS ORDERED: LIDOCAINE 2%/EPI 1:100,000 inj. Multi-dose 20 ML VIAL SQ ONE (23:30)
[2021-09-16 23:58] VITALS: BP 110/78
== END 2021-09-17 00:06 | disposition home or self-care (01) ==
LOC: ER 23:06
DX: S46.222A Laceration of muscle, fascia and tendon of other parts of biceps, left arm, initial encounter (principal); J45.909 Unspecified asthma, uncomplicated; G89.29 Other chronic pain; F41.9 Anxiety disorder, unspecified; F32.A Depression, unspecified; F12.90 Cannabis use, unspecified, uncomplicated; Z86.2 Personal history of diseases of the blood and blood-forming organs and certain disorders involving the immune mechanism; Z91.51 Personal history of suicidal behavior; Z72.89 Other problems related to lifestyle; Z98.891 History of uterine scar from previous surgery; Z88.8 Allergy status to other drugs, medicaments and biological substances; Z79.899 Other long term (current) drug therapy; Z79.2 Long term (current) use of antibiotics; X78.8XXA Intentional self-harm by other sharp object, initial encounter; Y93.89 Activity, other specified; Y92.89 Other specified places as the place of occurrence of the external cause; Y99.8 Other external cause status
CPT/HCPCS: 12002; 90471; 90715; 99283

== ENCOUNTER 2021-10-06 19:37 | Emergency (ER) | payer MEDICAID ==
[~2021-10-06] VITALS: Ht 154.9 cm; Wt 58.0 kg
[2021-10-06 19:42] VITALS: BP 112/78
[2021-10-06] MEDS ORDERED: PENI250T2 PO (20:29)
[2021-10-06] MEDS ORDERED: NAPR-56 PO (20:29)
[2021-10-06] MEDS ORDERED: penicillin V potassium 500mg tablet PO ONE (20:30)
[2021-10-06] MEDS ORDERED: naproxen 500mg tablet PO ONE (20:30)
== END 2021-10-06 20:39 | disposition home or self-care (01) ==
LOC: ER 19:37
DX: K08.89 Other specified disorders of teeth and supporting structures (principal); J45.909 Unspecified asthma, uncomplicated; G89.29 Other chronic pain; F41.9 Anxiety disorder, unspecified; F12.90 Cannabis use, unspecified, uncomplicated; F32.A Depression, unspecified; Z98.890 Other specified postprocedural states; Z72.89 Other problems related to lifestyle; Z88.8 Allergy status to other drugs, medicaments and biological substances; Z79.2 Long term (current) use of antibiotics; Z79.899 Other long term (current) drug therapy
CPT/HCPCS: 99283

== ENCOUNTER 2021-12-25 19:44 | Emergency (ER) | payer MEDICAID ==
[~2021-12-25] VITALS: Ht 154.9 cm; Wt 55.7 kg
[2021-12-25 19:58] VITALS: BP 96/62
[2021-12-25 20:24] LABS: CLARITY,URINE SLIGHTLY CLOUDY (Clear); COLOR,URINE YELLOW (Yellow); GLUCOSE, URINE NEGATIVE (Neg); KETONES,URINE TRACE mg/dl (Neg); LEUKOCYTE ESTERASE ,URINE TRACE (Neg); NITRITES, URINE NEGATIVE (Neg); OCCULT BLOOD,URINE TRACE-LYSED (Neg); PH,URINE 7.5 (4.8-8.0); PROTEIN,URINE NEGATIVE (Neg); UROBILINOGEN,URINE 0.2 E.U/dL (0.2-1.0)
[2021-12-25 20:26] LABS: URINE HCG NEGATIVE (NEG)
[2021-12-25 20:27] LABS: UA COLLECTION TYPE CLN CATCH MIDSTREAM
[2021-12-25 20:32] LABS: BACTERIA,URINE FEW /HPF (Neg); RBC,URINE 0-2 /HPF (0-2); SQUAMOUS EPITHELIAL CELL,UR MODERATE /LPF (FEW); WBC,URINE 0-4 /HPF (0-4)
[2021-12-25 20:33] LABS: AMORPHOUS PHOSPHATES 2+
[2021-12-25 20:50] LABS: BASOPHILS % (AUTO) 0.3 % (0-1); EOSINOPHILS # (AUTO) 0.1 X10'3 (0-0.9); EOSINOPHILS % (AUTO) 1.3 % (0-6); HEMATOCRIT 34.7 % (35.0-45.0); LYMPHOCYTES # (AUTO) 2.3 X10'3 (1.1-4.8); LYMPHOCYTES % (AUTO) 25.9 % (21-51); MEAN CORPUSCULAR HEMOGLOBIN 32.2 PG (27.0-31.0); MEAN CORPUSCULAR HGB CONC 34.6 g/dL (33.0-36.5); MEAN CORPUSCULAR VOLUME 93.3 FL (78-98); MEAN PLATELET VOLUME 7.4 FL (7.4-10.4); MONOCYTES # (AUTO) 0.7 X10'3 (0-0.9); MONOCYTES % (AUTO) 7.4 % (2-12); NEUTROPHILS # (AUTO) 5.8 X10'3 (1.8-7.7); NEUTROPHILS % (AUTO) 65.1 % (42-75); PLATELET COUNT 263 X10'3 (140-440); RED BLOOD COUNT 3.72 X10'6 (4.20-5.60); RED CELL DISTRIBUTION WIDTH 12.7 % (11.5-14.5); WHITE BLOOD COUNT 8.9 X10'3 (4.5-11.0)
[2021-12-25 21:01] LABS: ALANINE AMINOTRANSFERASE 12 U/L (12-78); ALBUMIN/GLOBULIN RATIO 1.1 (1.1-1.5); ALKALINE PHOSPHATASE 51 IU/L (46-116); ANION GAP 9 (8-16); ASPARTATE AMINO TRANSFERASE 9 U/L (10-37); BILIRUBIN,TOTAL 0.8 MG/DL (0.1-1.0); BLOOD UREA NITROGEN 12 MG/DL (7-18); BUN/CREATININE RATIO 15.8 (6.6-38.0); CALCIUM 9.3 MG/DL (8.5-10.1); CHLORIDE 105 MMOL/L (99-107); CREATININE 0.76 MG/DL (0.40-0.90); GLUCOSE 102 MG/DL (70-104); LIPASE 99 U/L (73-393); POTASSIUM 3.5 MMOL/L (3.5-5.1); SODIUM 142 MMOL/L (135-145); TOTAL CARBON DIOXIDE 27.6 MMOL/L (24-32); TOTAL PROTEIN 7.5 G/DL (6.4-8.2); eGFR > 90 ML/MIN
[2021-12-25] MEDS ORDERED: pantoprazole 40mg Tablet.DR PO SCH (21:02)
[2021-12-25] MEDS ORDERED: PANT20TA2 PO (21:06)
== END 2021-12-25 21:13 | disposition home or self-care (01) ==
LOC: ER 19:45
DX: R11.2 Nausea with vomiting, unspecified (principal); K92.1 Melena; R42 Dizziness and giddiness; R10.9 Unspecified abdominal pain; J45.909 Unspecified asthma, uncomplicated; D64.9 Anemia, unspecified; G89.29 Other chronic pain; M54.9 Dorsalgia, unspecified; F41.9 Anxiety disorder, unspecified; F12.10 Cannabis abuse, uncomplicated; Z88.8 Allergy status to other drugs, medicaments and biological substances; Z98.890 Other specified postprocedural states
CPT/HCPCS: 36415; 80053; 81001; 81025; 83690; 85025; 87088; 93005; 99284

== ENCOUNTER 2022-01-26 08:29 | Emergency (ER) | payer MEDICAID ==
[~2022-01-26] VITALS: Ht 154.9 cm; Wt 52.7 kg
[~2022-01-26 08:29] MED LIST changes: +PANT20TA2 PO
[2022-01-26] MEDS ORDERED: normal saline 1000ml 1,000 ML IV ONE (08:55)
[2022-01-26] MEDS ORDERED: bacitracin 15gm ointment TP ONE (09:00)
[2022-01-26 09:37] LABS: BASOPHILS % (AUTO) 0.3 % (0-1); EOSINOPHILS # (AUTO) 0.1 X10'3 (0-0.9); EOSINOPHILS % (AUTO) 0.7 % (0-6); HEMATOCRIT 33.3 % (35.0-45.0); HEMOGLOBIN 11.3 g/dl (12.0-16.0); LYMPHOCYTES # (AUTO) 1.1 X10'3 (1.1-4.8); LYMPHOCYTES % (AUTO) 13.7 % (21-51); MEAN CORPUSCULAR HEMOGLOBIN 31.6 PG (27.0-31.0); MEAN CORPUSCULAR HGB CONC 33.9 g/dL (33.0-36.5); MEAN CORPUSCULAR VOLUME 93.2 FL (78-98); MEAN PLATELET VOLUME 7.3 FL (7.4-10.4); MONOCYTES # (AUTO) 0.6 X10'3 (0-0.9); MONOCYTES % (AUTO) 7.4 % (2-12); NEUTROPHILS # (AUTO) 6.3 X10'3 (1.8-7.7); NEUTROPHILS % (AUTO) 77.9 % (42-75); PLATELET COUNT 233 X10'3 (140-440); RED BLOOD COUNT 3.57 X10'6 (4.20-5.60); RED CELL DISTRIBUTION WIDTH 12.9 % (11.5-14.5)
--- NOTE | 2022-01-26 09:52 | NUR ---
Pt transported to CT.
[2022-01-26 09:57] LABS: ALANINE AMINOTRANSFERASE 18 U/L (12-78); ALBUMIN 3.4 G/DL (3.4-5.0); ALBUMIN/GLOBULIN RATIO 1.1 (1.1-1.5); ALKALINE PHOSPHATASE 49 IU/L (46-116); ANION GAP 5 (8-16); ASPARTATE AMINO TRANSFERASE 8 U/L (10-37); BILIRUBIN,TOTAL 0.8 MG/DL (0.1-1.0); BLOOD UREA NITROGEN 15 MG/DL (7-18); BUN/CREATININE RATIO 20.5 (6.6-38.0); CALCIUM 8.4 MG/DL (8.5-10.1); CHLORIDE 109 MMOL/L (99-107); CREATININE 0.73 MG/DL (0.40-0.90); GLUCOSE 102 MG/DL (70-104); POTASSIUM 4.1 MMOL/L (3.5-5.1); SODIUM 143 MMOL/L (135-145); TOTAL CARBON DIOXIDE 29.3 MMOL/L (24-32); TOTAL PROTEIN 6.6 G/DL (6.4-8.2); eGFR > 90 ML/MIN
--- NOTE | 2022-01-26 10:00 | NUR ---
Pt back from CT, connected back to monitor, no distress noted.
[2022-01-26 10:03] LABS: MAGNESIUM 1.6 MG/DL (1.5-2.4)
[2022-01-26 10:39] VITALS: BP 97/61
== END 2022-01-26 10:41 | disposition home or self-care (01) ==
LOC: ER 08:29
DX: R56.9 Unspecified convulsions (principal); J45.909 Unspecified asthma, uncomplicated; G89.29 Other chronic pain; M54.50 Low back pain, unspecified; F12.90 Cannabis use, unspecified, uncomplicated; Z88.8 Allergy status to other drugs, medicaments and biological substances
CPT/HCPCS: 36415; 70450; 80053; 83735; 83880; 84484; 85025; 85610; 93005; 96360; 99285; J7030

== ENCOUNTER 2022-03-04 06:02 | Emergency (ER) | payer MEDICAID ==
[~2022-03-04] VITALS: Ht 154.9 cm; Wt 51.8 kg
[2022-03-04 06:26] VITALS: BP 106/73
== END 2022-03-04 09:47 | disposition home or self-care (01) ==
LOC: ER 06:03
DX: S46.911A Strain of unspecified muscle, fascia and tendon at shoulder and upper arm level, right arm, initial encounter (principal); J45.909 Unspecified asthma, uncomplicated; G89.29 Other chronic pain; F41.9 Anxiety disorder, unspecified; F12.10 Cannabis abuse, uncomplicated; Z98.890 Other specified postprocedural states; Z88.8 Allergy status to other drugs, medicaments and biological substances; Z79.899 Other long term (current) drug therapy; Z79.1 Long term (current) use of non-steroidal anti-inflammatories (NSAID); Z79.2 Long term (current) use of antibiotics; X50.9XXA Other and unspecified overexertion or strenuous movements or postures, initial encounter; Y93.89 Activity, other specified; Y92.89 Other specified places as the place of occurrence of the external cause; Y99.8 Other external cause status
CPT/HCPCS: 73030; 99283

== ENCOUNTER 2022-04-13 08:52 | Emergency (ER) | payer MEDICAID ==
[~2022-04-13] VITALS: Ht 154.9 cm; Wt 53.1 kg
[2022-04-13 09:16] VITALS: BP 120/80
[2022-04-13] MEDS ORDERED: HYDROcodone/acetaminophen 5mg/325mg tablet PO ONE (09:45)
[2022-04-13] MEDS ORDERED: HYDR-3965 PO (09:46)
--- NOTE | 2022-04-13 10:18 | NUR ---
[facility]. called them for appt, they left a message for their rn
== END 2022-04-13 10:14 | disposition home or self-care (01) ==
LOC: ER 08:52
DX: S42.251A Displaced fracture of greater tuberosity of right humerus, initial encounter for closed fracture (principal); J45.909 Unspecified asthma, uncomplicated; D64.9 Anemia, unspecified; G89.29 Other chronic pain; M54.9 Dorsalgia, unspecified; F41.9 Anxiety disorder, unspecified; Z88.8 Allergy status to other drugs, medicaments and biological substances; F32.A Depression, unspecified; W18.39XA Other fall on same level, initial encounter; Y93.89 Activity, other specified; Y92.89 Other specified places as the place of occurrence of the external cause; Y99.8 Other external cause status
CPT/HCPCS: 73030; 99283; A4565

== ENCOUNTER 2022-06-04 08:00 | Emergency (ER) | payer MEDICAID ==
[~2022-06-04] VITALS: Ht 154.9 cm; Wt 52.3 kg
[2022-06-04] MEDS ORDERED: KETO10TA2 PO (09:56)
[2022-06-04] MEDS ORDERED: ketorolac trometh inj. 60 MG/2 ML VIAL IM ONE (10:00)
[2022-06-04 10:32] VITALS: BP 116/84
== END 2022-06-04 10:36 | disposition home or self-care (01) ==
LOC: ER 08:01
DX: S42.251D Displaced fracture of greater tuberosity of right humerus, subsequent encounter for fracture with routine healing (principal); M75.21 Bicipital tendinitis, right shoulder; J45.909 Unspecified asthma, uncomplicated; G89.29 Other chronic pain; F41.9 Anxiety disorder, unspecified; F32.A Depression, unspecified; F12.90 Cannabis use, unspecified, uncomplicated; Z86.2 Personal history of diseases of the blood and blood-forming organs and certain disorders involving the immune mechanism; Z86.69 Personal history of other diseases of the nervous system and sense organs; Z98.890 Other specified postprocedural states; Z72.89 Other problems related to lifestyle; Z88.8 Allergy status to other drugs, medicaments and biological substances; Z79.899 Other long term (current) drug therapy; X58.XXXD Exposure to other specified factors, subsequent encounter
CPT/HCPCS: 73030; 96372; 99284; J1885

== ENCOUNTER 2022-07-18 11:44 | Emergency (ER) | payer MEDICAID ==
[~2022-07-18] VITALS: Ht 167.6 cm; Wt 56.0 kg
[~2022-07-18 11:44] MED LIST changes: +KETO10TA2 PO
[2022-07-18 11:49] VITALS: BP 104/71
[2022-07-18] MEDS ORDERED: HYDR-3965 PO (13:10)
[2022-07-18] MEDS ORDERED: AMOX-117 PO (13:10)
[2022-07-18] MEDS ORDERED: HYDROcodone/acetaminophen 5mg/325mg tablet PO ONE (13:15)
[2022-07-18] MEDS ORDERED: amox tr/potassium clavulanate 875/125mg TAB PO ONE (13:15)
== END 2022-07-18 13:37 | disposition home or self-care (01) ==
LOC: ER 11:45
DX: K04.7 Periapical abscess without sinus (principal); M27.69 Other endosseous dental implant failure; J45.909 Unspecified asthma, uncomplicated; G89.29 Other chronic pain; M54.50 Low back pain, unspecified; F12.90 Cannabis use, unspecified, uncomplicated; Z98.890 Other specified postprocedural states; Z88.8 Allergy status to other drugs, medicaments and biological substances
CPT/HCPCS: 99283

== ENCOUNTER 2022-10-14 03:19 | Emergency (ER) | payer MEDICAID ==
[~2022-10-14] VITALS: Ht 154.9 cm; Wt 51.4 kg
[2022-10-14] MEDS ORDERED: ondansetron 4mg rapidly disintigrating tab PO ONE (04:35)
[2022-10-14] MEDS ORDERED: amoxicillin 250mg capsule PO ONE (04:35)
[2022-10-14] MEDS ORDERED: acetaminophen 325mg tablet PO ONE (04:35)
[2022-10-14] MEDS ORDERED: HYDR-3965 PO (04:37)
[2022-10-14] MEDS ORDERED: AMOX-441 PO (04:37)
[2022-10-14 04:47] VITALS: BP 101/74
[2022-10-16] MEDS ORDERED: OXYC-145 PO (11:12)
== END 2022-10-14 04:59 | disposition home or self-care (01) ==
LOC: ER 03:20
DX: K08.89 Other specified disorders of teeth and supporting structures (principal); F17.200 Nicotine dependence, unspecified, uncomplicated; F12.10 Cannabis abuse, uncomplicated; J45.909 Unspecified asthma, uncomplicated; F41.9 Anxiety disorder, unspecified; F32.A Depression, unspecified; G89.29 Other chronic pain; M54.9 Dorsalgia, unspecified; Z88.8 Allergy status to other drugs, medicaments and biological substances; Z88.1 Allergy status to other antibiotic agents; Z79.899 Other long term (current) drug therapy; Z79.1 Long term (current) use of non-steroidal anti-inflammatories (NSAID); Z79.2 Long term (current) use of antibiotics
CPT/HCPCS: 99284

== ENCOUNTER 2022-11-19 15:16 | Emergency (ER) | payer MEDICAID ==
[~2022-11-19] VITALS: Ht 154.9 cm; Wt 51.4 kg
[~2022-11-19 15:16] MED LIST changes: +OXYC-145 PO
[2022-11-19 16:00] LABS: BASOPHILS % (AUTO) 0.2 % (0-1); EOSINOPHILS % (AUTO) 0.8 % (0-6); HEMATOCRIT 37.6 % (35.0-45.0); HEMOGLOBIN 12.6 g/dl (12.0-16.0); LYMPHOCYTES # (AUTO) 2.6 X10'3 (1.1-4.8); LYMPHOCYTES % (AUTO) 42.5 % (21-51); MEAN CORPUSCULAR HEMOGLOBIN 31.6 PG (27.0-31.0); MEAN CORPUSCULAR HGB CONC 33.4 g/dL (33.0-36.5); MEAN CORPUSCULAR VOLUME 94.6 FL (78-98); MEAN PLATELET VOLUME 6.6 FL (7.4-10.4); MONOCYTES # (AUTO) 0.5 X10'3 (0-0.9); MONOCYTES % (AUTO) 8.6 % (2-12); NEUTROPHILS # (AUTO) 2.9 X10'3 (1.8-7.7); NEUTROPHILS % (AUTO) 47.9 % (42-75); PLATELET COUNT 290 X10'3 (140-440); RED BLOOD COUNT 3.98 X10'6 (4.20-5.60); RED CELL DISTRIBUTION WIDTH 12.9 % (11.5-14.5); WHITE BLOOD COUNT 6.1 X10'3 (4.5-11.0)
[2022-11-19 16:01] LABS: URINE HCG NEGATIVE (NEG)
[2022-11-19 16:14] LABS: CLARITY,URINE SLIGHTLY CLOUDY (Clear); COLOR,URINE YELLOW (Yellow); GLUCOSE, URINE NEGATIVE (Neg); KETONES,URINE NEGATIVE (Neg); LEUKOCYTE ESTERASE ,URINE NEGATIVE (Neg); NITRITES, URINE NEGATIVE (Neg); OCCULT BLOOD,URINE TRACE-INTACT (Neg); PH,URINE 6.5 (4.8-8.0); PROTEIN,URINE 30 mg/dl (Neg); UROBILINOGEN,URINE 0.2 E.U/dL (0.2-1.0)
[2022-11-19 16:14] LABS: ALANINE AMINOTRANSFERASE 13 U/L (12-78); ALBUMIN 4.1 G/DL (3.4-5.0); ALBUMIN/GLOBULIN RATIO 1.3 (1.1-1.5); ALKALINE PHOSPHATASE 68 IU/L (46-116); ANION GAP 8 (8-16); ASPARTATE AMINO TRANSFERASE 11 U/L (10-37); BILIRUBIN,TOTAL 1.2 MG/DL (0.1-1.0); BLOOD UREA NITROGEN 13 MG/DL (7-18); BUN/CREATININE RATIO 16.3 (10.0-20.0); CHLORIDE 107 MMOL/L (99-107); GLUCOSE 102 MG/DL (70-104); LIPASE 66 U/L (73-393); POTASSIUM 4.1 MMOL/L (3.5-5.1); SODIUM 144 MMOL/L (135-145); TOTAL CARBON DIOXIDE 29.1 MMOL/L (24-32); TOTAL PROTEIN 7.3 G/DL (6.4-8.2); eGFR 86 ML/MIN
[2022-11-19 16:33] LABS: UA COLLECTION TYPE CLN CATCH MIDSTREAM
[2022-11-19 16:37] LABS: RBC,URINE 0-2 /HPF (0-2)
[2022-11-19 16:38] LABS: BACTERIA,URINE 2+ /HPF (Neg); MUCUS STRANDS MANY /LPF (Neg); SQUAMOUS EPITHELIAL CELL,UR MANY /LPF (FEW); TRANSITIONAL EPI CELLS,URINE FEW /HPF
[2022-11-19 18:18] VITALS: BP 101/62
== END 2022-11-19 18:20 | disposition home or self-care (01) ==
LOC: ER 15:17
DX: R42 Dizziness and giddiness (principal); R11.2 Nausea with vomiting, unspecified; R53.1 Weakness; J45.909 Unspecified asthma, uncomplicated; G89.29 Other chronic pain; F41.9 Anxiety disorder, unspecified; F32.9 Major depressive disorder, single episode, unspecified; F12.90 Cannabis use, unspecified, uncomplicated; Z98.890 Other specified postprocedural states; Z72.89 Other problems related to lifestyle; Z79.899 Other long term (current) drug therapy; Z88.8 Allergy status to other drugs, medicaments and biological substances
CPT/HCPCS: 36415; 80053; 81001; 81025; 83690; 85025; 99285

== ENCOUNTER 2023-06-12 05:43 | Emergency (ER) | payer BC, MEDICAID ==
[~2023-06-12] VITALS: Ht 154.9 cm; Wt 52.4 kg
[~2023-06-12 05:43] MED LIST changes: -MECL-159 PO; +MECL-302 PO
[2023-06-12] MEDS ORDERED: acetaminophen 325mg tablet PO STA (07:23)
[2023-06-12] MEDS ORDERED: ibuprofen tablet 400 MG TABLET PO ONE (07:25)
[2023-06-12] MEDS ORDERED: famotidine/PF 10 mg/ml inj IV ONE (07:30)
[2023-06-12] MEDS ORDERED: normal saline 1000ml 1,000 ML IV ONE (07:30)
[2023-06-12] MEDS ORDERED: ondansetron/PF 4mg/2ml inj IV ONE (07:30)
[2023-06-12] MEDS ORDERED: acetaminophen 1,000mg/100ml IV 100 ML IV SCH (08:00)
[2023-06-12 08:15] LABS: BASOPHILS % (AUTO) 0.1 % (0-1); EOSINOPHILS % (AUTO) 0 % (0-6); HEMATOCRIT 36.7 % (35.0-45.0); HEMOGLOBIN 12.4 g/dl (12.0-16.0); LYMPHOCYTES # (AUTO) 0.4 X10'3 (1.1-4.8); LYMPHOCYTES % (AUTO) 4.1 % (21-51); MEAN CORPUSCULAR HEMOGLOBIN 31.9 PG (27.0-31.0); MEAN CORPUSCULAR HGB CONC 33.7 g/dL (33.0-36.5); MEAN CORPUSCULAR VOLUME 94.6 FL (78-98); MEAN PLATELET VOLUME 6.9 FL (7.4-10.4); MONOCYTES # (AUTO) 0.6 X10'3 (0-0.9); MONOCYTES % (AUTO) 5.9 % (2-12); NEUTROPHILS # (AUTO) 8.8 X10'3 (1.8-7.7); NEUTROPHILS % (AUTO) 89.9 % (42-75); PLATELET COUNT 246 X10'3 (140-440); RED BLOOD COUNT 3.88 X10'6 (4.20-5.60); RED CELL DISTRIBUTION WIDTH 13.4 % (11.5-14.5); WHITE BLOOD COUNT 9.8 X10'3 (4.5-11.0)
[2023-06-12 08:25] LABS: URINE HCG NEGATIVE (NEG)
[2023-06-12 08:29] LABS: BILIRUBIN,URINE NEGATIVE (Neg); CLARITY,URINE CLOUDY (Clear); COLOR,URINE YELLOW (Yellow); GLUCOSE, URINE NEGATIVE (Neg); KETONES,URINE 15 mg/dl (Neg); LEUKOCYTE ESTERASE ,URINE NEGATIVE (Neg); NITRITES, URINE NEGATIVE (Neg); OCCULT BLOOD,URINE MODERATE (Neg); PROTEIN,URINE TRACE mg/dl (Neg)
[2023-06-12 08:35] LABS: UA COLLECTION TYPE NON-SPECIFIED
[2023-06-12 08:36] LABS: BACTERIA,URINE 1+ /HPF (Neg); MUCUS STRANDS MANY /LPF (Neg); SQUAMOUS EPITHELIAL CELL,UR MANY /LPF (FEW); TRANSITIONAL EPI CELLS,URINE MANY /HPF
[2023-06-12 08:37] LABS: WBC,URINE 0-4 /HPF (0-4)
[2023-06-12 08:38] LABS: ALANINE AMINOTRANSFERASE 16 U/L (12-78); ALBUMIN 3.8 G/DL (3.4-5.0); ALBUMIN/GLOBULIN RATIO 1.1 (1.1-1.5); ALKALINE PHOSPHATASE 60 IU/L (46-116); ANION GAP 11 (8-16); ASPARTATE AMINO TRANSFERASE 17 U/L (10-37); BILIRUBIN,TOTAL 1.7 MG/DL (0.1-1.0); BLOOD UREA NITROGEN 13 MG/DL (7-18); BUN/CREATININE RATIO 20.6 (10.0-20.0); CALCIUM 8.4 MG/DL (8.5-10.1); CHLORIDE 102 MMOL/L (99-107); CREATININE 0.63 MG/DL (0.40-0.90); GLUCOSE 107 MG/DL (70-104); LIPASE 14 U/L (16-77); MAGNESIUM 1.7 MG/DL (1.5-2.4); POTASSIUM 3.5 MMOL/L (3.5-5.1); SODIUM 137 MMOL/L (135-145); TOTAL CARBON DIOXIDE 24.3 MMOL/L (24-32); TOTAL PROTEIN 7.4 G/DL (6.4-8.2); eCRCL 100 ML/MIN; eGFR > 90 ML/MIN
[2023-06-12 09:23] VITALS: TEMP 98.8
[2023-06-12] MEDS ORDERED: normal saline 1000ML IV soln IVB ONE (09:35)
[2023-06-12] MEDS ORDERED: ONDA4TAB12 PO ×2 (09:49→11:19)
[2023-06-12] MEDS ORDERED: FAMO-128 PO ×2 (09:50→11:19)
[2023-06-12 11:06] VITALS: BP 91/50; PULSE 76; RESP 17; O2SAT 97
== END 2023-06-12 11:08 | disposition home or self-care (01) ==
LOC: ER 05:44
DX: B34.9 Viral infection, unspecified (principal); Z20.822 Contact with and (suspected) exposure to COVID-19; M79.10 Myalgia, unspecified site; R11.2 Nausea with vomiting, unspecified; G89.29 Other chronic pain; J45.909 Unspecified asthma, uncomplicated; F12.90 Cannabis use, unspecified, uncomplicated; Z72.89 Other problems related to lifestyle; Z88.8 Allergy status to other drugs, medicaments and biological substances; Z79.899 Other long term (current) drug therapy; Z79.2 Long term (current) use of antibiotics
CPT/HCPCS: 36415; 80053; 81001; 81025; 83690; 83735; 85025; 87502; 87503; 87811; 96361; 96374; 96375; 99284; J0131; J2405; J3490; J7030; 96365

== ENCOUNTER 2023-07-23 07:37 | Emergency (ER) | payer BC ==
[~2023-07-23] VITALS: Ht 154.9 cm; Wt 51.3 kg
[2023-07-23 07:53] VITALS: BP 95/68; PULSE 65; RESP 16; TEMP 97.9; O2SAT 97
[2023-07-23] MEDS ORDERED: ketorolac trometh inj. 60 MG/2 ML VIAL IM ONE (09:50)
[2023-07-23] MEDS ORDERED: HYDROcodone/acetaminophen 5mg/325mg tablet PO ONE (09:50)
[2023-07-23] MEDS ORDERED: HYDR-3965 PO (10:11)
[2023-07-23] MEDS ORDERED: AMOX-117 PO (10:11)
== END 2023-07-23 10:46 | disposition home or self-care (01) ==
LOC: ER 07:37
DX: S02.5XXA Fracture of tooth (traumatic), initial encounter for closed fracture (principal); X58.XXXA Exposure to other specified factors, initial encounter; Y93.89 Activity, other specified; Y92.89 Other specified places as the place of occurrence of the external cause; Y99.8 Other external cause status; J45.909 Unspecified asthma, uncomplicated; G89.29 Other chronic pain; M54.9 Dorsalgia, unspecified; F31.9 Bipolar disorder, unspecified
CPT/HCPCS: 96372; 99283; J1885

== ENCOUNTER 2023-08-17 09:26 | Emergency (ER) | payer BC ==
[~2023-08-17] VITALS: Ht 154.9 cm; Wt 50.1 kg
[2023-08-17] MEDS ORDERED: CYCL-1 PO (10:23)
[2023-08-17] MEDS: ketorolac trometh inj. 60 MG/2 ML VIAL IM ONE (10:37)
[2023-08-17 11:01] VITALS: BP 108/62; PULSE 70; RESP 16; TEMP 97.8; O2SAT 98
== END 2023-08-17 11:03 | disposition home or self-care (01) ==
LOC: ER 09:27
DX: S46.911A Strain of unspecified muscle, fascia and tendon at shoulder and upper arm level, right arm, initial encounter (principal); F12.90 Cannabis use, unspecified, uncomplicated; Z88.8 Allergy status to other drugs, medicaments and biological substances; Z79.899 Other long term (current) drug therapy; Z79.1 Long term (current) use of non-steroidal anti-inflammatories (NSAID); Z98.890 Other specified postprocedural states; X58.XXXA Exposure to other specified factors, initial encounter; Y93.89 Activity, other specified; Y92.89 Other specified places as the place of occurrence of the external cause; Y99.8 Other external cause status
CPT/HCPCS: 73030; 96372; 99283; J1885

== ENCOUNTER 2023-10-13 22:21 | Emergency (ER) | payer BC ==
[~2023-10-13] VITALS: Ht 154.9 cm; Wt 50.0 kg
[2023-10-13 22:28] VITALS: TEMP 98
[2023-10-13] MEDS ORDERED: CLIN-97 PO (23:36)
[2023-10-13] MEDS ORDERED: ACET-3068 PO (23:36)
[2023-10-13 23:50] VITALS: BP 125/78; PULSE 90; RESP 20; O2SAT 100
[2023-10-14] MEDS ORDERED: HYDR-3965 PO (15:45)
== END 2023-10-13 23:52 | disposition home or self-care (01) ==
LOC: ER 22:22
DX: K08.89 Other specified disorders of teeth and supporting structures (principal); K02.9 Dental caries, unspecified; J45.909 Unspecified asthma, uncomplicated; F12.90 Cannabis use, unspecified, uncomplicated; G89.29 Other chronic pain; Z98.891 History of uterine scar from previous surgery; Z72.89 Other problems related to lifestyle; Z88.8 Allergy status to other drugs, medicaments and biological substances; Z79.2 Long term (current) use of antibiotics; Z79.899 Other long term (current) drug therapy
CPT/HCPCS: 99283

== ENCOUNTER 2024-02-02 01:23 | Emergency (ER) | payer BC ==
[~2024-02-02] VITALS: Ht 154.9 cm; Wt 55.5 kg
[~2024-02-02 01:23] MED LIST changes: +CLIN-97 PO; +ONDA-243 PO; -ONDA4TAB12 PO
[2024-02-02 01:25] VITALS: TEMP 97.4
[2024-02-02] MEDS: ibuprofen tablet 400 MG TABLET PO ONE (02:10)
[2024-02-02] MEDS ORDERED: CYCL-1 PO (02:24)
[2024-02-02] MEDS: cyclobenzaprine 10mg tablet PO ONE (02:39)
[2024-02-02 02:42] VITALS: BP 112/68; PULSE 74; RESP 18; O2SAT 99
== END 2024-02-02 02:43 | disposition home or self-care (01) ==
LOC: ER 01:23
DX: S46.911A Strain of unspecified muscle, fascia and tendon at shoulder and upper arm level, right arm, initial encounter (principal); J45.909 Unspecified asthma, uncomplicated; D64.9 Anemia, unspecified; G89.29 Other chronic pain; M54.9 Dorsalgia, unspecified; F41.9 Anxiety disorder, unspecified; F32.A Depression, unspecified; F12.90 Cannabis use, unspecified, uncomplicated; F17.200 Nicotine dependence, unspecified, uncomplicated; Z98.890 Other specified postprocedural states; Z72.89 Other problems related to lifestyle; Z88.8 Allergy status to other drugs, medicaments and biological substances; Z79.2 Long term (current) use of antibiotics; Z79.1 Long term (current) use of non-steroidal anti-inflammatories (NSAID); Z79.899 Other long term (current) drug therapy; X58.XXXA Exposure to other specified factors, initial encounter; Y93.89 Activity, other specified; Y92.89 Other specified places as the place of occurrence of the external cause; Y99.8 Other external cause status
CPT/HCPCS: 99284

== ENCOUNTER 2024-08-07 23:47 | Emergency (ER) | payer BC, MEDICAID ==
[~2024-08-07] VITALS: Ht 154.9 cm; Wt 58.2 kg
[2024-08-08 00:06] VITALS: BP 100/67; PULSE 81; RESP 18; O2SAT 96
[2024-08-08 00:28] LABS: BILIRUBIN,URINE NEGATIVE (Neg); CLARITY,URINE CLEAR (Clear); COLOR,URINE YELLOW (Yellow); GLUCOSE, URINE NEGATIVE (Neg); KETONES,URINE NEGATIVE (Neg); LEUKOCYTE ESTERASE ,URINE SMALL (Neg); NITRITES, URINE POSITIVE (Neg); OCCULT BLOOD,URINE MODERATE (Neg); PROTEIN,URINE 100 mg/dl (Neg); UROBILINOGEN,URINE 0.2 E.U/dL (0.2-1.0)
[2024-08-08 00:29] LABS: URINE HCG NEGATIVE (NEG)
[2024-08-08 00:34] LABS: UA COLLECTION TYPE CLN CATCH MIDSTREAM
[2024-08-08 00:35] LABS: BACTERIA,URINE 2+ /HPF (Neg); SQUAMOUS EPITHELIAL CELL,UR FEW /LPF (FEW); WBC,URINE TNTC /HPF (0-4)
[2024-08-08] MEDS ORDERED: PHEN-824 PO (01:35)
[2024-08-08] MEDS ORDERED: NITR100C PO (01:35)
[2024-08-08 01:45] VITALS: TEMP 97.7
[2024-08-08] MEDS: FOSFOMYCIN TROMETHAMINE 3 GM PACKET PO ONE (01:56)
[2024-08-08] MEDS: phenazopyridine 100mg tablet PO ONE (01:56)
[2024-08-08] MEDS: nitrofurantoin macrocrystal 100mg capsule PO ONE (01:58)
== END 2024-08-08 01:59 | disposition home or self-care (01) ==
LOC: ER 23:47
DX: N39.0 Urinary tract infection, site not specified (principal); F31.9 Bipolar disorder, unspecified; G89.29 Other chronic pain; J45.909 Unspecified asthma, uncomplicated; Z88.8 Allergy status to other drugs, medicaments and biological substances; Z88.6 Allergy status to analgesic agent
CPT/HCPCS: 81001; 81025; 87088; 99284

== ENCOUNTER 2024-09-11 22:22 | Emergency (ER) | payer MEDICAID ==
[~2024-09-11] VITALS: Ht 154.9 cm; Wt 51.5 kg
[~2024-09-11 22:22] MED LIST changes: +NITR100C PO; +PHEN-824 PO
[2024-09-11 22:26] VITALS: BP 115/72; PULSE 77; RESP 15; O2SAT 97
[2024-09-11] MEDS ORDERED: AMOX-580 PO (22:45)
[2024-09-11 22:58] VITALS: TEMP 96.8
[2024-09-11] MEDS: amox tr/potassium clavulanate 875/125mg TAB PO ONE (23:00)
== END 2024-09-11 23:02 | disposition home or self-care (01) ==
LOC: ER 22:23
DX: K08.89 Other specified disorders of teeth and supporting structures (principal); K02.9 Dental caries, unspecified; J45.909 Unspecified asthma, uncomplicated; G89.29 Other chronic pain; M54.9 Dorsalgia, unspecified; F41.9 Anxiety disorder, unspecified; F32.A Depression, unspecified; D64.9 Anemia, unspecified; F12.90 Cannabis use, unspecified, uncomplicated; Z98.890 Other specified postprocedural states; Z72.89 Other problems related to lifestyle; Z88.8 Allergy status to other drugs, medicaments and biological substances; Z79.1 Long term (current) use of non-steroidal anti-inflammatories (NSAID); Z79.899 Other long term (current) drug therapy
CPT/HCPCS: 99283

== ENCOUNTER 2024-09-13 03:13 | Emergency (ER) | payer MEDICAID ==
[~2024-09-13] VITALS: Ht 154.9 cm; Wt 58.8 kg
[~2024-09-13 03:13] MED LIST changes: +AMOX-580 PO
[2024-09-13 03:15] VITALS: TEMP 98
[2024-09-13] MEDS ORDERED: IBUP-1984 PO (09:35)
[2024-09-13] MEDS ORDERED: HYDR-3965 PO (09:35)
[2024-09-13] MEDS: LIDOcaine 1% 30ml preserv. free vial SQ STA (09:45)
[2024-09-13 09:53] VITALS: BP 94/70; PULSE 58; RESP 14; O2SAT 98
== END 2024-09-13 09:56 | disposition home or self-care (01) ==
LOC: ER 03:14
DX: K02.9 Dental caries, unspecified (principal); K04.01 Reversible pulpitis; F31.9 Bipolar disorder, unspecified; F41.9 Anxiety disorder, unspecified; J45.909 Unspecified asthma, uncomplicated; F12.90 Cannabis use, unspecified, uncomplicated; Z88.8 Allergy status to other drugs, medicaments and biological substances
CPT/HCPCS: 99283

== ENCOUNTER 2024-11-13 06:04 | Emergency (ER) | payer MEDICAID ==
[~2024-11-13] VITALS: Ht 154.9 cm; Wt 57.0 kg
[~2024-11-13 06:04] MED LIST changes: -AMOX-580 PO
[2024-11-13 06:42] VITALS: BP 99/71; PULSE 73; RESP 15; O2SAT 97
--- NOTE | 2024-11-13 06:47 | Physician Documentation ---
History of Present Illness ~ Chief Complaint: Urinary Symptoms Stated Complaint: UTI Time Seen by MD: 06:46 Primary Medical Doctor: SYMONE Source: patient Mode of Arrival: POV HPI 29-year-old female with reported history of UTI, presenting with urinary symptoms. She tells me that her symptoms started yesterday. She reports lower abdominal discomfort in the central lower abdomen. She reports pain and discomfort with urination. She reports associated nausea. No fevers, back or flank pain, vomiting, diarrhea, constipation, vaginal bleeding or discharge. She did have a normal menstrual cycle earlier this month. She did not take any medications this morning. She did eat Cheetos for breakfast. Medication Reconciliation Allergies: Coded Allergies: benzonatate (Unverified Allergy, Intermediate, gi upset, 09/13/24) benzoyl peroxide (Unverified Allergy, Unknown, 09/13/24) gabapentin (Verified Allergy, Unknown, 09/13/24) Scheduled Clindamycin HCL* (Clindamycin HCL*), 1 CAP PO Q6H Cyclobenzaprine* (Cyclobenzaprine*), 1 TAB PO Q8H Famotidine (Pepcid), 1 TAB PO Q12H Famotidine (Pepcid), 1 TAB PO Q12H Famotidine (Pepcid), 1 TAB PO Q12H Guaifenesin/Dextromethorphan (Mucinex Dm ER 1,200-60 mg Tab), 1 TAB PO Q12H Ibuprofen (Motrin), 400 MG PO TID Ibuprofen (Ibuprofen), 1 TAB PO Q8H Ketorolac Tromethamine (Ketorolac Tromethamine), 1 TAB PO Q6H PRN Lurasidone HCl (Latuda), 1 TAB PO HS Methylprednisolone (Medrol Dosepak), 4 MG PO DAILY Nitrofurantoin Macrocrystal (Nitrofurantoin), 1 CAP PO Q12H ONDANSETRON ODT 4mg tablet (Ondansetron Odt), 4 MG PO Q6H ONDANSETRON ODT 4mg tablet (Ondansetron Odt), 4 MG PO Q6H Ondansetron (Zofran Odt), 1 TAB PO Q8H Ondansetron Hcl (Zofran), 1 TAB PO Q6H Ondansetron Hcl (Zofran), 1 TAB PO Q6H Pantoprazole Sodium (Protonix), 1 TAB PO DAILY Penicillin V Potassium* (Penicillin VK*), 500 MG PO QID Phenazopyridine HCl (Pyridium), 1 TAB PO Q8H Phenazopyridine HCl (Pyridium), 1 TAB PO Q8H Sulfamethoxazole/Trimethoprim (Bactrim Ds Tablet), 1 TAB PO Q12H Scheduled PRN Albuterol Sulfate (Proair Hfa), 2 PUFFS IH Q6H PRN for SOB or wheezing Cyclobenzaprine* (Cyclobenzaprine*), 1 TABLET PO Q8H PRN for muscle spasms Cyclobenzaprine* (Cyclobenzaprine*), 1 TAB PO TID PRN for pain Meclizine HCl (Meclizine HCl), 1 TAB PO Q8H PRN for dizziness/vertigo ONDANSETRON ODT 4mg tablet (Ondansetron Odt), 1 TABLET PO Q6H PRN for nausea/vomiting Ondansetron Hcl (Zofran), 1 TABLET PO Q8H PRN for NAUSEA Oxycodone HCl/Acetaminophen (Percocet 5-325 mg Tablet), 1 TAB PO Q12H PRN PRN for pain Past Medical History Past Medical History: Seizures, Vertigo, Asthma, Anemia, UTI, Chronic Back Pain, Anxiety, Bipolar, Depression Past Surgical History: Other Past Family History: cancer Alcohol Use: Occasionally Drug Use: marijuana Lives with: Mother Lives In: Home Occupation: employed, student Review of Systems Constitutional: Denies: fever Gastrointestinal: Reports: abdominal pain, nausea; Denies: vomiting, diarrhea, constipated Genitourinary: Reports: burning, dysuria; Denies: flank pain Physical Exam Vital Signs: Temperature: 98.3, Source: Temporal, Heart Rate: 73, Respiratory Rate: 15, BP: 99/71, Pulse Oximetry: 97, Weight: 56.950 Physical Exam General: This is a pleasant and healthy appearing young female who is using her phone when I enter the room HEENT: Atraumatic, oropharynx is moist Heart: Regular rate and rhythm, normal-appearing peripheral perfusion Lungs: normal work of breathing, normal oxygen saturation on room air Abdomen: Soft, nondistended. Mild tenderness to palpation in the suprapubic region only, otherwise nontender, no rebound or guarding Neuro: Alert and oriented, no focal deficits Psychiatric: Appears tired but is cooperative with exam Progress Results/Orders Results/Orders Orders - SHERLY ROSA MD Cult Urine + [address] [facility] (11/13/24 08:41) Completed Orders - SHERLY ROSA MD Hcg, Ur Ql (11/13/24 06:46) Phenazopyridine Tablet (Pyridium Tablet) (11/13/24 07:00) Ondansetron Disint. Tablet (Zofran Odt T (11/13/24 07:00) Ibuprofen Tablet (Motrin Tablet) (11/13/24 07:00) Ua W/Microscopic, Cult If Ind (11/13/24 06:53) Ua W/Microscopic, Cult If Ind (11/13/24 07:55) Sulfamethox/Trimetho. Ds Tab (Septra Ds (11/13/24 08:55) Medications Received in ER Medications (Trade) Dose Ordered Sig/Maday Route PRN Reason Start Time Stop Time Status Last Admin Dose Admin (Pyridium tablet) 200 mg ONCE ONCE PO 11/13/24 07:00 11/13/24 07:01 DC 11/13/24 07:33 200 MG (Zofran ODT tablet) 4 mg ONCE ONCE PO 11/13/24 07:00 11/13/24 07:01 DC 11/13/24 07:34 4 MG (Motrin tablet) 600 mg ONCE ONCE PO 11/13/24 07:00 11/13/24 07:05 DC 11/13/24 07:34 600 MG Vital Signs 11/13/24 06:42 Temp 98.3 Pulse 73 Resp 15 B/P (MAP) 99/71 Pulse Ox 97 Laboratory Tests Test 11/13/24 06:53 11/13/24 07:55 Urine Specimen Description Cln catch midstream Cln catch midstream Urine Color Yellow Yellow Urine Clarity Cloudy Clear Urine pH 6.0 6.0 Urine Specific [place] 1.025 >=1.030 Urine Protein Negative Trace Urine Glucose (UA) Negative Negative Urine Ketones Negative Negative Urine Occult Blood Moderate H Moderate H Urine Nitrite Positive H Negative Urine Bilirubin Negative Negative Urine Urobilinogen 0.2 0.2 Urine Leukocyte Esterase Moderate H Small H Urine RBC 0-2 10-20 Urine WBC 50-100 H 30-50 H Urine WBC Clumps Many Urine Squamous Epithelial Cells Many Few Urine Bacteria 2+ Few Urine Mucus Moderate Few Urine Culture Indicated Rejected for culture Indicated Volume Urine Centrifuged 10 ml 6 ml Urine HCG, Qualitative Negative Urine Comment Low volume Re-Evaluation Re-Evaluation : Progress 7:30 a.m.: Urinalysis returns with signs of contamination and multiple squamous cells. Rejected for culture. Plan: Repeat urinalysis. Medical Decision Making Additional info obtained from: old records Findings I reviewed the patient's past urine cultures, which showed that the last 4 cultures were not positive for infection, showed either no growth or mixed ying Urinary Diff Dx:Considerations: Include: PID, Pyelonephritis, Urolithiasis, UTI, Vaginitis Genital Diff Dx:Considerations: Include: Assessment The patient presents with urinary symptoms and lower abdominal pain. She was given symptomatic treatment for possible UTI. Initial urinalysis is contaminated. Repeat urinalysis is consistent with a UTI. She will be treated with 3 days of Bactrim, given Pyridium and other symptomatic treatment. Urine culture pending. Discharged home. Departure Time of Disposition: 07:24 Disposition: HOME / SELF CARE / HOMELESS Impression: Primary Impression: Acute urinary tract infection Discharge Instructions: Urinary Tract Infection, Adult Referrals: NO PRIMARY CARE PROVIDER (PCP) Prescriptions Sulfamethoxazole/Trimethoprim (Bactrim Ds Tablet) 800 Mg-160 Mg Tablet 1 TAB PO Q12H for 3 Days, #6 TAB Prov: SHERLY ROSA MD 11/13/24 Phenazopyridine HCl (Pyridium) 200 Mg Tablet 1 TAB PO Q8H for urinary discomfort for 2 Days, #6 TAB 0 Refills Prov: SHERLY ROSA MD 11/13/24 Education Educated: Patient Educated regarding: diagnosis, treatment Signature Scribe Signature: jeff Attestation: SHERLY Mccord MD November 13, 2024 06:47
[2024-11-13 07:15] LABS: BILIRUBIN,URINE NEGATIVE (Neg); CLARITY,URINE CLOUDY (Clear); COLOR,URINE YELLOW (Yellow); GLUCOSE, URINE NEGATIVE (Neg); KETONES,URINE NEGATIVE (Neg); LEUKOCYTE ESTERASE ,URINE MODERATE (Neg); NITRITES, URINE POSITIVE (Neg); OCCULT BLOOD,URINE MODERATE (Neg); PROTEIN,URINE NEGATIVE (Neg); UROBILINOGEN,URINE 0.2 E.U/dL (0.2-1.0)
[2024-11-13 07:20] LABS: UA COLLECTION TYPE CLN CATCH MIDSTREAM
[2024-11-13 07:21] LABS: MUCUS STRANDS MODERATE /LPF (Neg); URINE HCG NEGATIVE (NEG); WBC,URINE 50-100 /HPF (0-4)
[2024-11-13 07:22] LABS: BACTERIA,URINE 2+ /HPF (Neg); RBC,URINE 0-2 /HPF (0-2); WBC CLUMPS,URINE MANY /HPF (NEGATIVE)
[2024-11-13 07:23] LABS: SQUAMOUS EPITHELIAL CELL,UR MANY /LPF (FEW)
[2024-11-13] MEDS ORDERED: PHEN-716 PO (07:26)
[2024-11-13] MEDS: phenazopyridine 100mg tablet PO ONE (07:33)
[2024-11-13] MEDS: ondansetron 4mg rapidly disintigrating tab PO ONE (07:34)
[2024-11-13] MEDS: ibuprofen 200mg tablet PO ONE (07:34)
[2024-11-13 08:07] LABS: BILIRUBIN,URINE NEGATIVE (Neg); CLARITY,URINE CLEAR (Clear); COLOR,URINE YELLOW (Yellow); GLUCOSE, URINE NEGATIVE (Neg); KETONES,URINE NEGATIVE (Neg); LEUKOCYTE ESTERASE ,URINE SMALL (Neg); NITRITES, URINE NEGATIVE (Neg); OCCULT BLOOD,URINE MODERATE (Neg); PROTEIN,URINE TRACE mg/dl (Neg); UROBILINOGEN,URINE 0.2 E.U/dL (0.2-1.0)
[2024-11-13 08:38] LABS: UA COLLECTION TYPE CLN CATCH MIDSTREAM
[2024-11-13 08:40] LABS: WBC,URINE 30-50 /HPF (0-4)
[2024-11-13 08:41] LABS: BACTERIA,URINE FEW /HPF (Neg); MUCUS STRANDS FEW /LPF (Neg); SQUAMOUS EPITHELIAL CELL,UR FEW /LPF (FEW)
[2024-11-13] MEDS ORDERED: SULF1TAB49 PO (08:53)
[2024-11-13] MEDS: sulfamethoxazole/trimethoprim DS (800/160mg) tablet PO ONE (09:13)
[2024-11-13 09:36] VITALS: TEMP 98.3
== END 2024-11-13 09:38 | disposition home or self-care (01) ==
LOC: ER 06:05
DX: N39.0 Urinary tract infection, site not specified (principal); F31.9 Bipolar disorder, unspecified; J45.909 Unspecified asthma, uncomplicated; D64.9 Anemia, unspecified; F12.90 Cannabis use, unspecified, uncomplicated; Z72.89 Other problems related to lifestyle; Z88.8 Allergy status to other drugs, medicaments and biological substances; Z79.899 Other long term (current) drug therapy; Z98.890 Other specified postprocedural states
CPT/HCPCS: 81001; 81025; 87077; 87088; 87186; 99284

== ENCOUNTER 2024-12-18 05:08 | Emergency (ER) | payer MEDICAID ==
[~2024-12-18] VITALS: Ht 154.9 cm; Wt 56.6 kg
[~2024-12-18 05:08] MED LIST changes: +PHEN-716 PO
[2024-12-18 05:12] VITALS: BP 115/87; PULSE 78; RESP 16; TEMP 97.5; O2SAT 98
--- NOTE | 2024-12-18 06:12 | Physician Documentation ---
History of Present Illness ~ General Chief Complaint: See Chief Complaint Stated Complaint: NUMBNESS IN FEET Time Seen by MD: 06:02 Primary Medical Doctor: SYMONE Source: patient History of Present Illness Initial Comments 29 year old female reports numbness and tingling the started after she tried cocaine for the first time the other day. Denies weakness, difficulty walking, history of diabetes and kidney disease. Medication Reconciliation Allergies: Coded Allergies: benzonatate (Unverified Allergy, Intermediate, gi upset, 12/18/24) benzoyl peroxide (Unverified Allergy, Unknown, 12/18/24) gabapentin (Verified Allergy, Unknown, 12/18/24) Scheduled Clindamycin HCL* (Clindamycin HCL*), 1 CAP PO Q6H Cyclobenzaprine* (Cyclobenzaprine*), 1 TAB PO Q8H Famotidine (Pepcid), 1 TAB PO Q12H Famotidine (Pepcid), 1 TAB PO Q12H Famotidine (Pepcid), 1 TAB PO Q12H Guaifenesin/Dextromethorphan (Mucinex Dm ER 1,200-60 mg Tab), 1 TAB PO Q12H Ibuprofen (Motrin), 400 MG PO TID Ibuprofen (Ibuprofen), 1 TAB PO Q8H Ketorolac Tromethamine (Ketorolac Tromethamine), 1 TAB PO Q6H PRN Lurasidone HCl (Latuda), 1 TAB PO HS Methylprednisolone (Medrol Dosepak), 4 MG PO DAILY Nitrofurantoin Macrocrystal (Nitrofurantoin), 1 CAP PO Q12H ONDANSETRON ODT 4mg tablet (Ondansetron Odt), 4 MG PO Q6H ONDANSETRON ODT 4mg tablet (Ondansetron Odt), 4 MG PO Q6H Ondansetron (Zofran Odt), 1 TAB PO Q8H Ondansetron Hcl (Zofran), 1 TAB PO Q6H Ondansetron Hcl (Zofran), 1 TAB PO Q6H Pantoprazole Sodium (Protonix), 1 TAB PO DAILY Penicillin V Potassium* (Penicillin VK*), 500 MG PO QID Phenazopyridine HCl (Pyridium), 1 TAB PO Q8H Phenazopyridine HCl (Pyridium), 1 TAB PO Q8H Scheduled PRN Albuterol Sulfate (Proair Hfa), 2 PUFFS IH Q6H PRN for SOB or wheezing Cyclobenzaprine* (Cyclobenzaprine*), 1 TABLET PO Q8H PRN for muscle spasms Cyclobenzaprine* (Cyclobenzaprine*), 1 TAB PO TID PRN for pain Meclizine HCl (Meclizine HCl), 1 TAB PO Q8H PRN for dizziness/vertigo ONDANSETRON ODT 4mg tablet (Ondansetron Odt), 1 TABLET PO Q6H PRN for nausea/vomiting Ondansetron Hcl (Zofran), 1 TABLET PO Q8H PRN for NAUSEA Oxycodone HCl/Acetaminophen (Percocet 5-325 mg Tablet), 1 TAB PO Q12H PRN PRN for pain Past Medical History Past Medical History: Seizures, Vertigo, Asthma, Anemia, UTI, Chronic Back Pain, Anxiety, Bipolar, Depression Past Surgical History: Last Menstrual Period: Nov 30, 2024 Other Past Family History: cancer Alcohol Use: Occasionally Drug Use: marijuana Lives with: Mother Lives In: Home Occupation: employed, student Review of Systems All Other Systems at this time: Reviewed and Negative Physical Exam Physical Exam Vital Signs: RN Vital Signs have been reviewed: Yes, Temperature: 97.5, Source: Temporal, Heart Rate: 78, Respiratory Rate: 16, BP: 115/87, Pulse Oximetry: 98, Weight: 56.600 Oxygen Flow Rate: 0 Physical Exam HEENT: PERRL, moist oral mucosa, EOMI Pulmonary: No respiratory distress MSK: no deformity Skin: w/d/i, no rash Neuro: alert, nonfocal Psych: normal affect Progress Results/Orders Results/Orders Vital Signs 12/18/24 05:12 Temp 97.5 Pulse 78 Resp 16 B/P (MAP) 115/87 Pulse Ox 98 O2 Flow Rate 0 Departure Disposition: 01 HOME / SELF CARE / HOMELESS Impression: Primary Impression: Paresthesia Condition: Stable Discharge Instructions: Paresthesia Referrals: NO PRIMARY CARE PROVIDER (PCP) Education Educated: Patient Educated regarding: diagnosis, treatment, prognosis Signature Scribe Signature: . Attestation: . ZENA DONALDSON MD Dec 18, 2024 06:12
== END 2024-12-18 06:30 | disposition home or self-care (01) ==
LOC: ER 05:09
DX: R20.2 Paresthesia of skin (principal); R20.0 Anesthesia of skin; J45.909 Unspecified asthma, uncomplicated; D64.9 Anemia, unspecified; F32.A Depression, unspecified; F12.90 Cannabis use, unspecified, uncomplicated; F31.9 Bipolar disorder, unspecified; Z88.8 Allergy status to other drugs, medicaments and biological substances; Z79.899 Other long term (current) drug therapy; Z72.89 Other problems related to lifestyle
CPT/HCPCS: 99281; 99282

== ENCOUNTER 2025-01-17 03:26 | Emergency (ER) | payer MEDICAID ==
[~2025-01-17] VITALS: Ht 154.9 cm; Wt 53.6 kg
[2025-01-17 03:29] VITALS: TEMP 97
--- NOTE | 2025-01-17 04:23 | Physician Documentation ---
HPI ~ General Chief Complaint: Tooth Problem Stated Complaint: TOOTH PAIN Time Seen by MD: 04:17 Primary Medical Doctor: SYMONE Source: patient Mode of Arrival: POV Exam Limitations: no limitations History of Present Illness HPI Comment Chief Complaint: Dental pain Caveat: None Independent Historians: None History of Present Illness: Patient is a 29-year-old woman who complains of severe left lower dental pain that began 12 hours ago. Pain is sensitive to cold liquids. Patient has not tried chewing on his since the pain began. Patient has had a decayed tooth there for some time. Patient denies any other associated symptoms. Review of systems: All systems were reviewed and are negative except for what is indicated in the history of present illness. Past Medical History: None Past Surgical History: None Social History: Denies alcohol use or drug use Medications: Reviewed as documented Nursing Notes Allergies: Reviewed as documented in Nursing Notes Medication Reconciliation Allergies: Coded Allergies: benzonatate (Unverified Allergy, Intermediate, gi upset, 01/17/25) benzoyl peroxide (Unverified Allergy, Unknown, 01/17/25) gabapentin (Verified Allergy, Unknown, 01/17/25) Scheduled Clindamycin HCL* (Clindamycin HCL*), 1 CAP PO Q6H Cyclobenzaprine* (Cyclobenzaprine*), 1 TAB PO Q8H Famotidine (Pepcid), 1 TAB PO Q12H Famotidine (Pepcid), 1 TAB PO Q12H Famotidine (Pepcid), 1 TAB PO Q12H Guaifenesin/Dextromethorphan (Mucinex Dm ER 1,200-60 mg Tab), 1 TAB PO Q12H Ibuprofen (Motrin), 400 MG PO TID Ibuprofen (Ibuprofen), 1 TAB PO Q8H Ketorolac Tromethamine (Ketorolac Tromethamine), 1 TAB PO Q6H PRN Lurasidone HCl (Latuda), 1 TAB PO HS Methylprednisolone (Medrol Dosepak), 4 MG PO DAILY Nitrofurantoin Macrocrystal (Nitrofurantoin), 1 CAP PO Q12H ONDANSETRON ODT 4mg tablet (Ondansetron Odt), 4 MG PO Q6H ONDANSETRON ODT 4mg tablet (Ondansetron Odt), 4 MG PO Q6H Ondansetron (Zofran Odt), 1 TAB PO Q8H Ondansetron Hcl (Zofran), 1 TAB PO Q6H Ondansetron Hcl (Zofran), 1 TAB PO Q6H Pantoprazole Sodium (Protonix), 1 TAB PO DAILY Penicillin V Potassium* (Penicillin VK*), 500 MG PO QID Phenazopyridine HCl (Pyridium), 1 TAB PO Q8H Phenazopyridine HCl (Pyridium), 1 TAB PO Q8H Scheduled PRN Albuterol Sulfate (Proair Hfa), 2 PUFFS IH Q6H PRN for SOB or wheezing Cyclobenzaprine* (Cyclobenzaprine*), 1 TABLET PO Q8H PRN for muscle spasms Cyclobenzaprine* (Cyclobenzaprine*), 1 TAB PO TID PRN for pain Meclizine HCl (Meclizine HCl), 1 TAB PO Q8H PRN for dizziness/vertigo ONDANSETRON ODT 4mg tablet (Ondansetron Odt), 1 TABLET PO Q6H PRN for nausea/vomiting Ondansetron Hcl (Zofran), 1 TABLET PO Q8H PRN for NAUSEA Oxycodone HCl/Acetaminophen (Percocet 5-325 mg Tablet), 1 TAB PO Q12H PRN PRN for pain Past Medical History Past Medical History: Seizures, Vertigo, Asthma, Anemia, UTI, Chronic Back Pain, Anxiety, Bipolar, Depression Past Surgical History: Other Past Family History: cancer Alcohol Use: Occasionally Drug Use: marijuana Lives with: Mother Lives In: Home Occupation: employed, student Review of Systems All Other Systems at this time: Reviewed and Negative ROS PATIENT DENIES ANY OTHER ACUTE SYMPTOMS OTHER THAN ABOVE. ALL OTHER SYSTEMS ARE NEGATIVE Physical Exam Vital Signs: RN Vital Signs have been reviewed: Yes, Temperature: 97.0, Source: Temporal, Heart Rate: 69, Respiratory Rate: 14, BP: 114/66, Pulse Oximetry: 98, Weight: 53.600 Pulse Oximetry Reflects: adequate oxygenation Physical Exam General Appearance: No distress HEENT: Normal OP, moist oral mucosa, PERRL, EOMI, poor dentition, tooth 18. Is extremely decayed and open. No peridental fluctuance, no facial swelling. No lymphadenopathy. No submental swelling. Neck: supple, normal ROM, trachea midline Pulmonary: No respiratory distress, CTA, BS equal Cardiac: RRR, no murmur, rub or gallop, Skin: intact, dry, warm, no rashes Neuro: AAOx3, speech is clear, no focal motor weakness Psych: normal affect, good eye contact, no apparent hallucination, normal speech Progress Results/Orders Results/Orders Completed Orders - JOHN PAUL ALBARRAN MD Penicillin V Potassium Tablet (Penicilli (01/17/25 04:20) Hydrocodone/Apap 10/325 (Hindman 10/325mg (01/17/25 04:20) Medications Received in ER Medications (Trade) Dose Ordered Sig/Maday Route PRN Reason Start Time Stop Time Status Last Admin Dose Admin (Hindman 10/325mg tab) 1 tab ONCE ONCE PO 01/17/25 04:20 01/17/25 04:21 DC 01/17/25 04:33 1 TAB Vital Signs 01/17/25 01/17/25 01/17/25 03:29 04:33 05:00 Temp 97.0 Pulse 69 65 Resp 14 16 16 B/P (MAP) 114/66 93/62 Pulse Ox 98 98 Medical Decision Making Findings Differential diagnosis includes but is not limited to: Periapical abscess, derik dental abscess, dental caries, Jagdish's Emergency department course/medical decision-making: Patient has a decayed tooth number 17 that is decayed down to the gum and open. No peridental fluctuance. Patient likely has a periapical abscess. Patient is started on pen VK and Hindman. Patient is stable for discharge. She is instructed to follow up with a dentist this. No evidence of Jagdish's angina. Departure Time of Disposition: 04:21 Disposition: 01 HOME / SELF CARE / HOMELESS Impression: Primary Impression: Pain, dental Additional Impression: Dental infection Condition: Stable Discharge Instructions: Dental Pain Additional Instructions: FOLLOW UP WITH A DENTIST SOON POSSIBLE. Education Educated: Patient Educated regarding: diagnosis, treatment, need for follow up Signature Scribe Signature: No scribe Attestation: No scribe JOHN PAUL ALBARRAN MD Jan 17, 2025 04:23
[2025-01-17] MEDS: HYDROcodone/acetaminophen 10/325mg tab PO ONE (04:33)
[2025-01-17] MEDS: penicillin V potassium 500mg tablet PO ONE (04:52)
[2025-01-17 05:00] VITALS: BP 93/62; PULSE 65; RESP 16; O2SAT 98
== END 2025-01-17 05:02 | disposition home or self-care (01) ==
LOC: ER 03:27
DX: K04.7 Periapical abscess without sinus (principal); F31.9 Bipolar disorder, unspecified; J45.909 Unspecified asthma, uncomplicated; Z88.8 Allergy status to other drugs, medicaments and biological substances
CPT/HCPCS: 99283

== ENCOUNTER 2025-01-17 20:44 | Emergency (ER) | payer MEDICAID ==
[~2025-01-17] VITALS: Ht 154.9 cm; Wt 52.7 kg
[2025-01-17 20:51] VITALS: BP 107/72; PULSE 68; RESP 16; TEMP 98.4; O2SAT 98
== END 2025-01-18 00:29 | disposition left against medical advice (07) ==
LOC: ER 20:44
DX: K08.89 Other specified disorders of teeth and supporting structures (principal); Z53.21 Procedure and treatment not carried out due to patient leaving prior to being seen by health care provider; Z88.8 Allergy status to other drugs, medicaments and biological substances

== ENCOUNTER 2025-04-16 10:28 | Outpatient (CLI) | payer MEDICAID ==
[~2025-04-16 10:28] MED LIST changes: +CLIN-224 PO; -CLIN-97 PO; -IBUP-1985 PO; +IBUP600T52 PO
--- NOTE | 2025-04-16 12:12 | RADIOLOGY REPORT ---
PROCEDURE: MRI thoracic spine without contrast. INDICATION: PAIN IN THORACIC SPINE COMPARISON: None TECHNIQUE: MRI thoracic spine without intravenous contrast utilizing multiplanar, multisequence technique. FINDINGS: The marrow signal is homogenous. The vertebral body heights are maintained. Alignment of the thoracic spine is preserved. There is posterior central disc protrusion at T6-T7 causing mild spinal stenosis. The disc protrusion abuts the ventral surface of the thoracic spinal cord on the left side. No significant neural foraminal stenosis in the thoracic spine. The thoracic spinal cord is normal in caliber and signal characteristics. Other: None. Impression: 1. Posterior central disc protrusion at T6-T7 causing mild spinal stenosis. The disc protrusion abuts the ventral surface of the thoracic spinal cord on the left side. 2. No significant neural foraminal stenosis.
== END 2025-04-16 23:59 | disposition home or self-care (01) ==
LOC: MRI02 10:28
PROVIDERS: ATTEND Family Medicine
DX: M51.24 Other intervertebral disc displacement, thoracic region (principal); M48.04 Spinal stenosis, thoracic region
CPT/HCPCS: 72146

== ENCOUNTER 2025-05-13 16:34 | Emergency (ER) | payer MEDICAID ==
[~2025-05-13] VITALS: Ht 154.9 cm; Wt 53.6 kg
[2025-05-13 16:45] VITALS: BP 105/72; PULSE 85; RESP 18; O2SAT 97
[2025-05-13] MEDS ORDERED: AMOX-117 PO (18:36)
--- NOTE | 2025-05-13 18:37 | Physician Documentation ---
HPI ~ General Chief Complaint: Tooth Problem Stated Complaint: TOOTH PAIN Time Seen by MD: 16:57 Primary Medical Doctor: SYMONE History of Present Illness HPI Comment Patient is a 30-year-old female presenting with severe left lower gum pain, swelling, and lymphadenopathy adjacent to a fractured tooth, consistent with a localized dental abscess. She denies fever, chills, GI symptoms, or airway compromise. She has not yet seen a dentist but is scheduled for follow-up next week. Medication Reconciliation Allergies: Coded Allergies: benzonatate (Unverified Allergy, Intermediate, gi upset, 05/13/25) benzoyl peroxide (Unverified Allergy, Unknown, 05/13/25) gabapentin (Verified Allergy, Unknown, 05/13/25) Scheduled Clindamycin HCL* (Clindamycin HCL*), 1 CAP PO Q6H Cyclobenzaprine* (Cyclobenzaprine*), 1 TAB PO Q8H Famotidine (Pepcid), 1 TAB PO Q12H Famotidine (Pepcid), 1 TAB PO Q12H Famotidine (Pepcid), 1 TAB PO Q12H Guaifenesin/Dextromethorphan (Mucinex Dm ER 1,200-60 mg Tab), 1 TAB PO Q12H Ibuprofen (Motrin), 400 MG PO TID Ibuprofen (Ibuprofen), 1 TAB PO Q8H Ketorolac Tromethamine (Ketorolac Tromethamine), 1 TAB PO Q6H PRN Lurasidone HCl (Latuda), 1 TAB PO HS Methylprednisolone (Medrol Dosepak), 4 MG PO DAILY Nitrofurantoin Macrocrystal (Nitrofurantoin), 1 CAP PO Q12H ONDANSETRON ODT 4mg tablet (Ondansetron Odt), 4 MG PO Q6H ONDANSETRON ODT 4mg tablet (Ondansetron Odt), 4 MG PO Q6H Ondansetron (Zofran Odt), 1 TAB PO Q8H Ondansetron Hcl (Zofran), 1 TAB PO Q6H Ondansetron Hcl (Zofran), 1 TAB PO Q6H Pantoprazole Sodium (Protonix), 1 TAB PO DAILY Penicillin V Potassium* (Penicillin VK*), 500 MG PO QID Phenazopyridine HCl (Pyridium), 1 TAB PO Q8H Phenazopyridine HCl (Pyridium), 1 TAB PO Q8H Scheduled PRN Albuterol Sulfate (Proair Hfa), 2 PUFFS IH Q6H PRN for SOB or wheezing Cyclobenzaprine* (Cyclobenzaprine*), 1 TABLET PO Q8H PRN for muscle spasms Cyclobenzaprine* (Cyclobenzaprine*), 1 TAB PO TID PRN for pain Meclizine HCl (Meclizine HCl), 1 TAB PO Q8H PRN for dizziness/vertigo ONDANSETRON ODT 4mg tablet (Ondansetron Odt), 1 TABLET PO Q6H PRN for nausea/vomiting Ondansetron Hcl (Zofran), 1 TABLET PO Q8H PRN for NAUSEA Oxycodone HCl/Acetaminophen (Percocet 5-325 mg Tablet), 1 TAB PO Q12H PRN PRN for pain Past Medical History Past Medical History: Seizures, Vertigo, Asthma, Anemia, UTI, Chronic Back Pain, Anxiety, Bipolar, Depression Past Surgical History: Other Past Family History: cancer Alcohol Use: Occasionally Drug Use: marijuana Lives with: Mother Lives In: Home Occupation: employed, student Review of Systems ROS As stated above in the HPI, otherwise all systems are reviewed and negative. Physical Exam Vital Signs: Temperature: 97.1, Heart Rate: 85, Respiratory Rate: 18, BP: 105/72, Pulse Oximetry: 97, Weight: 53.600 Oxygen Flow Rate: 0 Physical Exam VITALS: Reviewed and as above. GENERAL: Alert, no apparent distress. HEENT: Normocephalic, atraumatic, PERRL, EOMI, dry mucosa, no erythema, swelling noted to the left lower jaw line area of abscess noted along the gumline associated with the 2nd or 3rd molar on the left side, lymphadenopathy noted in the left submandibular lymph nodes during examination. RESPIRATORY: Lungs clear, normal breath sounds, no respiratory distress. CHEST: No accessory muscle use, no retractions CV: Regular rate, rhythm, no edema, no murmur, No: JVD GI: Soft, non-tender, bowels sounds present, no rebound, guarding, or rigidity BACK: No CVA tenderness, or swelling MUSCULOSKELETAL No deformities, no edema SKIN: Warm and dry, no rash NEURO: Oriented x4, No motor or sensory deficit PSYCH: Normal mood and affect, no agitation Progress Results/Orders Results/Orders Completed Orders - CYNTHIA HOLBROOK DARIN Acetaminophen 325mg Tablet (Tylenol Tabl (05/13/25 18:05) Amox Tr/Potassium Clavulanate (Augmentin (05/13/25 18:30) Vital Signs 05/13/25 16:45 Temp 97.1 Pulse 85 Resp 18 B/P (MAP) 105/72 Pulse Ox 97 O2 Flow Rate 0 Medical Decision Making Additional information obtaine: other Findings Patient is a 30-year-old female presenting with severe left lower gum pain, swelling, and lymphadenopathy adjacent to a fractured tooth, consistent with a localized dental abscess. She denies fever, chills, GI symptoms, or airway compromise. She has not yet seen a dentist but is scheduled for follow-up next week. Assessment: The clinical picture is most consistent with a localized acute apical abscess with regional lymphadenopathy, but without systemic toxicity or airway involvement. No evidence of deep space infection or immediate threat to life. Patient is immunocompetent. Medical decision-making: Per [place] [employer] guidelines, definitive management of dental abscess requires dental intervention (e.g., root canal, incision and drainage, or extraction). In the absence of immediate dental care, interim management includes oral antibiotics and analgesia. Amoxicillin- clavulanate (Augmentin) is appropriate first-line therapy for immunocompetent adults with dental abscess and associated lymphadenopathy. Acetaminophen was administered for pain control, with good response; NSAIDs may also be considered for optimal analgesia. Patient was educated on warning signs (worsening pain/swelling, fever, airway compromise, or new systemic symptoms) and instructed to return to the ED if these develop. She will follow up with her dentist and PCP for definitive care. Antibiotics should be discontinued 24 hours after symptom resolution, and reevaluation is recommended within 3 days if symptoms persist or worsen. Risk/benefit analysis: Antibiotic therapy is indicated given the presence of abscess and lymphadenopathy, and the inability to obtain immediate dental intervention.Pain control is optimized with acetaminophen and/or NSAIDs. The patient is low risk for complications at this time, but close follow-up is essential. Disposition: Discharged in improved condition after initial dose of Augmentin and acetaminophen. Scheduled dental follow-up. Return precautions reviewed. Differential Dx:Considerations: Include: Alveolar fracture, Alveolar osteitis, ANUG, Facial Cellulitis, Periapical abscess, Peridontal abscess, Post-extraction bleeding, Pulpitis, Tooth avulsion, Tooth eruption, Tooth Fracture, Trigeminal neuralgia, Tooth subluxation, Other Departure Disposition: 01 HOME / SELF CARE / HOMELESS Impression: Primary Impression: Toothache Additional Impressions: Dental caries Dental abscess Condition: Stable Discharge Instructions: Dental Caries, Adult, Dental Abscess, Dental Pain Additional Instructions: Diagnosis and Treatment: You were seen today for a tooth infection (dental abscess) with swelling and tender lymph nodes near your jaw. You received your first dose of Augmentin (an antibiotic) and acetaminophen (Tylenol) for pain relief in the emergency departm ent. You are scheduled to see a dentist next week for definitive care, which is necessary to fully treat the infection. Medications: Continue taking Augmentin as prescribed. Take acetaminophen (Tylenol) as needed for pain, but do not exceed 4,000 mg in 24 hours. Nonsteroidal anti-inflammatory drugs (NSAIDs) like ibuprofen may also help with pain if not contraindicated. Stop antibiotics 24 hours after your symptoms resolve, unless otherwise directed by your dentist or doctor. Oral Care: Rinse your mouth gently with warm salt water several times a day. Avoid chewing on the affected side. Maintain good oral hygiene, but avoid brushing directly over the swollen area if it is too painful. Follow-Up: It is important to keep your scheduled appointment with your dentist for further treatment, such as drainage or root canal, which is needed to cure the infection. Follow up with your primary care provider as advised. When to Seek Immediate Care: Return to the emergency department or contact your doctor immediately if you experience any of the following: Increasing pain, swelling, or redness Difficulty breathing or swallowing Fever, chills, or feeling very unwell New or worsening lymph node swelling Rash, severe diarrhea, or abdominal pain (possible side effects of antibiotics). Additional Information: Lymph node swelling is common with dental infections and should improve as the infection resolves. If your pain does not improve or worsens, or if you cannot see your dentist within a few days, contact your healthcare provider. Questions: If you have any questions about your medications or symptoms, please call your healthcare provider. Thank you for your attention to these instructions. Your recovery depends on completing your medications and following up for definitive dental care. Referrals: NO PRIMARY CARE PROVIDER (PCP) Prescriptions Amox Tr/Potassium Clavulanate (Augmentin 875-125 Tablet) 1 Each Tablet 1 TAB PO Q12H for 10 Days, #20 TAB Prov: CYNTHIA HOLBROOK 05/13/25 Education Educated: Patient Educated regarding: diagnosis, treatment, need for follow up Signature Scribe Signature: A Attestation: Scribed for Cynthia Holbrook by DARIN Morris . 05/13/25 18:37 CYNTHIA HOLBROOK May 13, 2025 18:37
[2025-05-13] MEDS: amox tr/potassium clavulanate 875/125mg TAB PO ONE (18:45)
[2025-05-13 18:48] VITALS: TEMP 97.1
== END 2025-05-13 18:49 | disposition home or self-care (01) ==
LOC: ER 16:35
DX: K02.9 Dental caries, unspecified (principal); K04.7 Periapical abscess without sinus; F31.9 Bipolar disorder, unspecified; F41.9 Anxiety disorder, unspecified; J45.909 Unspecified asthma, uncomplicated; Z88.8 Allergy status to other drugs, medicaments and biological substances
CPT/HCPCS: 99283